=== PATIENT | male | born 1960 | race Caucasian/White ===

== ENCOUNTER 2016-09-17 21:14 | Inpatient (IN) | payer BC ==
[~2016-09-17] VITALS: Ht 190.5 cm; Wt 84.4 kg
[2016-09-17 21:15] VITALS: BP 138/72; PULSE 98; RESP 20; TEMP 102.2; O2SAT 97
--- NOTE | 2016-09-17 21:15 | NUR ---
Patient to ER bed 6 to gown for evaluation. Side rails up. Report given to JV BRITO.
--- NOTE | 2016-09-17 21:17 | NUR ---
Pt BIB ambulance from [facility] for evaluation of fever, per facility report, pt had elevated T at 102 . A&Ox4, currently tachycardic, temporal temp 102.2, colostomy at [facility], vertical incision at mid-abdomen covered with foam drsg r/t wound vac d/t abdominal surgery in June. Pt did not come with wound vac. Denies SOB or chestpain, denies N/V/D. Will continue to monitor
--- NOTE | 2016-09-17 21:20 | NUR ---
MD Arora at bedside examining pt
[2016-09-17] MEDS ORDERED: AMI200 PO (21:23)
[2016-09-17] MEDS ORDERED: MULT-300 PO (21:24)
[2016-09-17] MEDS ORDERED: ASCO500T20 PO (21:25)
[2016-09-17] MEDS ORDERED: ZIN220 PO (21:25)
[2016-09-17] MEDS ORDERED: LEVE500T53 PO (21:26)
[2016-09-17] MEDS ORDERED: CHOL100028 PO (21:26)
[2016-09-17] MEDS ORDERED: METO-290 PO (21:27)
[2016-09-17] MEDS ORDERED: PRO40 PO (21:28)
[2016-09-17] MEDS ORDERED: LOVI80 SQ (21:29)
[2016-09-17] MEDS ORDERED: ACET-2165 PO (21:33)
[2016-09-17] MEDS ORDERED: IPRA3AMP9 INH (21:34)
[2016-09-17] MEDS ORDERED: SSREG SUBCUT (21:49)
[2016-09-17 22:00] LABS: BASOPHILS # (AUTO) 0.1 K/uL (0.0-0.2); BASOPHILS % (AUTO) 0.5 % (0.0-2.0); EOSINOPHILS # (AUTO) 0.3 K/uL (0.0-0.4); EOSINOPHILS % (AUTO) 2.5 % (0.0-4.0); HEMATOCRIT 27.3 % (36-54); HEMOGLOBIN 8.9 g/dL (14.0-18.0); LYMPHOCYTES # (AUTO) 0.6 K/uL (1.0-5.5); LYMPHOCYTES % (AUTO) 5.2 % (20.5-51.5); MEAN CORPUSCULAR HEMOGLOBIN 28 pg (27-31); MEAN CORPUSCULAR HGB CONC 33 % (32-36); MEAN CORPUSCULAR VOLUME 87 fL (79.0-98.0); MONOCYTES # (AUTO) 1.3 K/uL (0.0-1.0); MONOCYTES % (AUTO) 10.9 % (1.7-9.3); NEUTROPHILS % (AUTO) 80.9 % (40.0-70.0); PLATELET COUNT (AUTO) 352 K/uL (130-430); RED BLOOD CELL COUNT(AUTO) 3.13 MIL/uL (4.2-6.2); RED CELL DISTRIBUTION WIDTH 16.6 % (9.0-15.0); WHITE BLOOD COUNT (AUTO) 12.3 K/uL (4.8-10.8)
[2016-09-17 22:04] LABS: CALCIUM 9.4 mg/dL (8.4-11.0); CREATININE 2.53 mg/dL (0.55-1.30); POTASSIUM 4.8 mmol/L (3.5-5.1)
[2016-09-17 22:09] LABS: ALBUMIN 2.4 g/dL (3.4-4.8); INR 1.1 (0.80-1.20); PROTHROMBIN TIME 11.4 SECS (9.5-12.5); TOTAL BILIRUBIN 0.4 mg/dL (0.0-1.0); TOTAL PROTEIN, SERUM 8.3 g/dL (6.4-8.3)
[2016-09-17] MEDS ORDERED: ACETAMINOPHEN 325 MG TABLET ONE (22:14)
[2016-09-17 22:16] LABS: BILIRUBIN,URINE NEGATIVE (NEGATIVE); BLOOD, URINE 1+ (NEGATIVE); CLARITY/URINE SL HAZY (CLEAR); COLOR,URINE YELLOW (YELLOW); GLUCOSE,URINE NEGATIVE (NEGATIVE); KETONES,URINE NEGATIVE (NEGATIVE); LEUKOCYTE ESTERASE ,URINE 1+ (NEGATIVE); NITRITE, URINE NEGATIVE (NEGATIVE); PH,URINE 5.5 (5.0-8.0); PROTEIN URINE 1+ (NEGATIVE); UROBILINOGEN,URINE 0.2 (0.2-1.0)
--- NOTE | 2016-09-17 22:20 | NUR ---
Pt met sepsis protocol, FLORECITA barrientos stated to give 100 mL/hr NS for now
[2016-09-17] MEDS ORDERED: NACL 0.9% 1,000 ML IV ONE (22:30)
[2016-09-17 22:40] LABS: BACTERIA,URINE FEW /HPF (None Seen); COARSE GRANULAR CASTS,URINE 0-10 /LPF (None Seen); MUCUS,URINE 1+ /LPF (None Seen); URINE AMORPHOUS URATE 1+ /HPF (None Seen); WBC,URINE 20-50 /HPF (0-3)
--- NOTE | 2016-09-17 22:52 | NUR ---
Medication reconciliation completed with information provided by facility report. Any prior medication reconciliation on file was reviewed and corrected.
[2016-09-17] MEDS ORDERED: LEVOFLOXACIN 500 MG/D5W 100 ML IV ONE (23:00)
--- NOTE | 2016-09-17 23:30 | NUR ---
Pt in bed appeared resting comfortably. Will continue to monitor
[2016-09-18] MEDS ORDERED: INSULIN REGULAR, HUMAN 100 UNITS/ML, 10 ML VIAL (novoLIN R) SUBCUT PRN ×2 (00:30→10:30)
--- NOTE | 2016-09-18 00:48 | NUR ---
Patient will be admitted to care of . Admitted to med-surg unit. Will go to room 134. Belongings list completed. Summary report printed. Report will be given at bedside Sheeba BRITO
--- NOTE | 2016-09-18 00:55 | NUR ---
ADMISSION NOTE Received patient from ER via serafin, received report from DARYL rankin. Patient admitted with diagnosis of UTI. Patient oriented to hospital routine, call light, toileting and safety-patient verbalized understanding.
[2016-09-18 00:58] VITALS: BP 105/61; PULSE 94; RESP 18; TEMP 97.7; O2SAT 97
--- NOTE | 2016-09-18 01:00 | NUR ---
initial note. pt. received aaox4, no s/s of sob or distress noted. no complaints of pain at this time. vss. iv fluids infusing at this time. no infiltration noted to iv site. abdominal wound noted. photographs taken and to be placed in chart. colostomy to LLQ noted, no output at this time. welsh catheter draining to gravity with clear yellow output noted. plan of care discussed with the pt., verbalizes understanding. will cont. to monitor for changes. safety and fall precautions in place. call light in reach.
--- NOTE | 2016-09-18 02:42 | NUR ---
rounds pt. resting in bed with eyes closed. chest rise and fall noted. no s/s of sob or distress. no facial grimacing for pain. will cont. to monitor. safety and fall precautions in place. call light in reach.
--- NOTE | 2016-09-18 06:31 | NUR ---
CLOSING NOTES PT. VOMITING AT THIS TIME. DR. LAZCANO PAGED. ORDERS RECEIVED FOR ZOFRAN PRN. WILL ADMINISTER DOSE SOON IT BECOMES AVAILABLE. ALL NECESSARY NEEDS WERE MET THROUGHOUT THE SHIFT. MORNING BLOOD SUGAR CHECK WAS WITHIN NORMAL LIMITS. NO INSULIN COVERAGE NEEDED PER SLIDING SCALE PROTOCOL. WILL ENDORSE CARE TO AM NURSE. CALL LIGHT IN REACH.
[2016-09-18 06:32] VITALS: BP 107/63; PULSE 100; RESP 17; TEMP 99.4; O2SAT 92
[2016-09-18] MEDS: ONDANSETRON HCL 4 MG/2 ML VIAL IVP PRN (06:43)
--- NOTE | 2016-09-18 08:00 | NUR ---
opening note RECEIVED REPORT AT 0745. PT WAS TRANSFERRED FROM A SNF DUE TO FEVER AND WAS DIAGNOSED WIT A UTI. PT IS SITTING UP IN BED AND STATED HE RECENTLY FELT NAUSEOUS BUT THAT THE RECENT DOSE OF ZOFRAN WAS HELPING. BANUELOS DUE TO BLADDER RETENTION, SECURE AND IN PLACE. VS STABLE AND PT IS NOT COMPLAINING OF PAIN OR DISCOMFORT.
--- NOTE | 2016-09-18 10:00 | NUR ---
ROUNDS PT IS SITTING UP IN BED, WATCHING TV, AND STATES HE IS COMFORTABLE
[2016-09-18] MEDS ORDERED: ACETAMINOPHEN 325 MG TABLET PO PRN (10:30)
[2016-09-18] MEDS ORDERED: cefTRIAXone 1 GM IVPB PREMIX 50 ML IV SCH (10:30)
[2016-09-18] MEDS ORDERED: IPRATROPIUM/ALBUTEROL SULFATE 3 ML AMPUL.NEB INH PRN ×2 (10:30→10:45)
[2016-09-18] MEDS ORDERED: DEXTROSE 50% JECT 50 ML DISP.SYRIN IVP PRN (10:30)
[2016-09-18] MEDS ORDERED: AMIODARONE HCL 200 MG TABLET PO ONE (10:45)
[2016-09-18] MEDS ORDERED: ASCORBIC ACID 500 MG TABLET PO ONE (10:45)
[2016-09-18] MEDS ORDERED: LEVOFLOXACIN 250 MG/D5W 50 ML IV SCH (11:00)
[2016-09-18] MEDS ORDERED: CHOLECALCIFEROL (VITAMIN D3) 2,000 UNIT TABLET PO ONE (11:15)
[2016-09-18] MEDS ORDERED: PANTOPRAZOLE SODIUM 40 MG TAB PO ONE (11:15)
[2016-09-18] MEDS ORDERED: DOCUSATE SODIUM 250 MG CAPSULE PO ONE (11:30)
[2016-09-18] MEDS ORDERED: ENOXAPARIN SODIUM 80 MG/0.8 ML SYRINGE SQ ONE (11:30)
[2016-09-18] MEDS ORDERED: levETIRAcetam 500 MG TABLET PO ONE (11:45)
[2016-09-18] MEDS ORDERED: MULTIVITS,CA,MINERALS/IRON/FA 1 TABLET PO ONE (11:45)
--- NOTE | 2016-09-18 11:45 | NUR ---
CONSULT: DR VALENZUELA CONSULT WAS CALLED, AJAY RICHARDSON SEPSIS
[2016-09-18 12:16] VITALS: BP 92/56; PULSE 86; RESP 16; TEMP 99.7; O2SAT 98
--- NOTE | 2016-09-18 12:30 | NUR ---
ROUNDS PT IS SITTING UP IN BED, EATING LUNCH. HE STATES HE IS DRY AND COMFORTABLE
[2016-09-18] MEDS: IPRATROPIUM/ALBUTEROL SULFATE 3 ML AMPUL.NEB INH SCH ×2 (13:00→19:00)
[2016-09-18] MEDS: METOCLOPRAMIDE HCL 10 MG TABLET PO SCH ×2 (14:33→21:06)
--- NOTE | 2016-09-18 15:00 | NUR ---
VIV PT IS IN BED AND APPEARS TO BE SLEEPING. I SET HIS GLASSES ON THE NIGHT STAND AND TURNED HIS LIGHTS OFF.
[2016-09-18 16:18] VITALS: BP 98/56; PULSE 90; RESP 16; TEMP 98.8; O2SAT 94
--- NOTE | 2016-09-18 17:00 | NUR ---
ROUNDS PT APPEARS TO BE SLEEPING, BUT HE WOKE EASILY AND SAID HE WAS NOT EXPERIENCING ANY PAIN. I ASSISTED HIM IN REPOSITIONING FOR COMFORT AND ORGANIZING HIS SURROUNDINGS.
[2016-09-18 17:58] VITALS: BP 98/56; PULSE 94
--- NOTE | 2016-09-18 19:15 | NUR ---
CLOSING NOTE PT IS AWAKE AND ORIENTED, STABLE AND COOPERATIVE WITH NO COMPLAINTS OF DISCOMFORT. REPORT GIVEN AT BEDSIDE TO ALEKSEY.
--- NOTE | 2016-09-18 19:53 | NUR ---
OPENING NOTE Pt. and bedside report received from day shift nurse. Pt. is AAO x 4 and resting in bed. IV site to right f/a 20g is dry and intact with no s/s of infiltration. Colostomy noted to left lower abdomen. Dressing to mid abdomen is CDI with no active bleeding noted. Plan of care discussed; pt. verbalized understanding. Safety and fall precautions in place. Encouraged pt. to use call light for needs. Bed alarm on. Will continue to monitor.
[2016-09-18 20:00] VITALS: BP 108/61; PULSE 95; RESP 18; TEMP 98; O2SAT 96
[2016-09-18] MEDS: DOCUSATE SODIUM 250 MG CAPSULE PO SCH (21:05)
[2016-09-18] MEDS: MEROPENEM 1 GM in NS 100 ML IV SCH (21:05)
[2016-09-18] MEDS: ENOXAPARIN SODIUM 80 MG/0.8 ML SYRINGE SQ SCH (21:05)
[2016-09-18] MEDS: levETIRAcetam 500 MG TABLET PO SCH (21:08)
--- NOTE | 2016-09-18 21:30 | NUR ---
DUE MEDS Due meds were administered as ordered; educated pt. regarding medication and s/e. Pt. verbalized understanding with no concerns at this time. Accucheck done; pt.'s blood sugar: 114; no insulin was given per sliding scale order. Pt. denies any pain or discomfort at this time. Safety and fall precautions in place. Call light to left hand. Encouraged pt. to use call light for needs. Will continue to monitor.
--- NOTE | 2016-09-18 22:00 | NUR ---
REFUSED SCDS Educated pt. regarding SCD order. Pt. refused and stated "those will bug me all night. I've had them before." Pt. also has Lovenox order for DVT prophylaxis. Will continue to monitor.
--- NOTE | 2016-09-19 00:39 | NUR ---
RESTING Pt. is resting quietly in bed with no s/s of acute distress. Respirations are even and unlabored with visible chest rise and fall. Safety and fall precautions in place. Call light to right left hand. Will continue to monitor.
[2016-09-19 00:58] VITALS: BP 109/58; PULSE 97; RESP 17; TEMP 97.8; O2SAT 98
[2016-09-19] MEDS: IPRATROPIUM/ALBUTEROL SULFATE 3 ML AMPUL.NEB INH SCH ×4 (01:00→19:00)
--- NOTE | 2016-09-19 01:25 | NUR ---
ROUNDS Pt. is resting quietly in bed with no s/s of acute distress. Safety and fall precautions in place. Will continue to monitor.
--- NOTE | 2016-09-19 03:47 | NUR ---
RESTING Pt. is resting quietly in bed with eyes closed. Respirations are even and unlabored with visible chest rise and fall. No s/s of acute distress. Safety and fall precautions in place. Call light to left hand. Bed alarm on. Will continue to monitor.
[2016-09-19 04:00] VITALS: BP 108/63; PULSE 78; RESP 18; TEMP 98.2; O2SAT 98
--- NOTE | 2016-09-19 05:41 | NUR ---
POSITIVE BLOOD CULTURE RESULTS Gayle from lab called to report pt.'s positive blood culture results from 09/17/16. Gram negative rods from aerobic bottle. Paging Dr. Don to report. Will wait for MD to call back.
--- NOTE | 2016-09-19 05:57 | NUR ---
REPORTED POSITIVE BLOOD CULTURES TO DR. JACKSON Reported pt.'s positive blood culture results to Dr. Jackson. Dr. Jackson asked about pt.'s current IV antibiotic which is Merrem IVPB BID. No new orders were given. Charge nurse, DARYL Christensen also made aware.
[2016-09-19] MEDS: METOCLOPRAMIDE HCL 10 MG TABLET PO SCH ×3 (06:06→21:06)
--- NOTE | 2016-09-19 06:45 | NUR ---
DUE MED/ACCUCHECK/CLOSING NOTES Due med administered as ordered. Pt. tolerated well. Accucheck done, blood sugar within normal limits. All needs met throughout shift. Safety, seizure, and fall precautions in place. No s/s of seizure activity throughout shift. Pt. denies any pain at this time. Safety and fall precautions in place. Encouraged pt. to use call light for needs. Will endorse care to oncoming day shift nurse.
[2016-09-19 06:47] LABS: BASOPHILS % (AUTO) 0.4 % (0.0-2.0); EOSINOPHILS % (AUTO) 8.4 % (0.0-4.0); HEMATOCRIT 28.1 % (36-54); HEMOGLOBIN 9.1 g/dL (14.0-18.0); LYMPHOCYTES # (AUTO) 0.6 K/uL (1.0-5.5); LYMPHOCYTES % (AUTO) 5.2 % (20.5-51.5); MEAN CORPUSCULAR HEMOGLOBIN 28 pg (27-31); MEAN CORPUSCULAR HGB CONC 32 % (32-36); MEAN CORPUSCULAR VOLUME 87 fL (79.0-98.0); MONOCYTES # (AUTO) 1.7 K/uL (0.0-1.0); MONOCYTES % (AUTO) 14.9 % (1.7-9.3); PLATELET COUNT (AUTO) 357 K/uL (130-430); RED BLOOD CELL COUNT(AUTO) 3.23 MIL/uL (4.2-6.2); RED CELL DISTRIBUTION WIDTH 16.6 % (9.0-15.0); WHITE BLOOD COUNT (AUTO) 11.3 K/uL (4.8-10.8)
[2016-09-19 07:06] LABS: ALBUMIN 2.1 g/dL (3.4-4.8); CALCIUM 9.1 mg/dL (8.4-11.0); CREATININE 2.56 mg/dL (0.55-1.30); PHOSPHORUS 4.8 mg/dL (2.7-4.5); POTASSIUM 4.6 mmol/L (3.5-5.1); THYROID STIMULATING HORMONE 2.35 uIu/mL (0.34-4.82); TOTAL BILIRUBIN 0.4 mg/dL (0.0-1.0)
[2016-09-19 07:56] LABS: IRON (SERUM) 20 mcg/dL (59-158)
[2016-09-19 07:57] LABS: TOTAL IRON BIND. CAPACITY 128 ug/dL (250-450)
--- NOTE | 2016-09-19 08:11 | NUR ---
0800/OPENING NOTE RECEIVED REPORT FROM SUPERVISOR DOCK NURSE. PATIENT RESTING COMFORTABLY AT THIS TIME. NO COMPLAINTS OF PAIN, AND NO NOTABLE SIGNS OF DISTRESS AT THIS TIME. PATIENT HAS COLOSTOMY BAG TO [facility], FILLED WITH GAS, WOULD LIKE MEDICATION TO HELP WITH CONSTIPATION. PER PATIENT LAST BM WAS MONDAY. PATIENT IV SALINE LOCKED PER MD ORDERS, PATIENT REFUSED SCDS, AND BANUELOS IS DRAINING TO GRAVITY. PATIENT BED IN LOWEST POSITION, CALL LIGHT WITHIN REACH, AND SIDE RAILS ARE UP FOR SAFETY. PATIENT HAS SEIZURE PADS APPLIED TO SIDE RAILS. WILL CONTINUE TO MONITOR PATIENT FOR CHANGES IN STATUS.
[2016-09-19 08:14] VITALS: BP 111/69; PULSE 88; RESP 15; TEMP 98.4; O2SAT 97
--- NOTE | 2016-09-19 10:04 | NUR ---
Nutrition Update Clifford Scale 16 noted. Pt admitted for UTI. Diet: [facility] BMI: 24.1 kg/m2 RD to follow per nutrition care standards.
[2016-09-19 10:11] LABS: NEUTROPHILS % (AUTO) 71.1 % (40.0-70.0)
[2016-09-19] MEDS: ASCORBIC ACID 500 MG TABLET PO SCH (10:11)
[2016-09-19] MEDS: levETIRAcetam 500 MG TABLET PO SCH ×2 (10:11→21:06)
[2016-09-19] MEDS: DOCUSATE SODIUM 250 MG CAPSULE PO SCH ×2 (10:11→21:06)
[2016-09-19] MEDS: AMIODARONE HCL 200 MG TABLET PO SCH (10:13)
[2016-09-19] MEDS: MULTIVITS,CA,MINERALS/IRON/FA 1 TABLET PO SCH (10:13)
[2016-09-19] MEDS: PANTOPRAZOLE SODIUM 40 MG TAB PO SCH (10:13)
[2016-09-19] MEDS: CHOLECALCIFEROL (VITAMIN D3) 2,000 UNIT TABLET PO SCH (10:14)
[2016-09-19] MEDS: ENOXAPARIN SODIUM 80 MG/0.8 ML SYRINGE SQ SCH ×2 (10:15→21:06)
--- NOTE | 2016-09-19 10:18 | NUR ---
1000 NOTE PATIENT RESTING COMFORTABLY AT THIS TIME. NO COMPLAINTS OF PAIN, AND NO NOTABLE SIGNS OF DISTRESS AT THIS TIME. PATIENT HAS COLOSTOMY BAG TO LLQ, FILLED WITH GAS, AND SMALL AMOUNT OF STOOL. PATIENT IV SALINE LOCKED PER MD ORDERS AND BNAUELOS IS DRAINING TO GRAVITY. PATIENT BED IN LOWEST POSITION, CALL LIGHT WITHIN REACH, AND SIDE RAILS ARE UP FOR SAFETY. PATIENT HAS SEIZURE PADS APPLIED TO SIDE RAILS. WILL CONTINUE TO MONITOR PATIENT FOR CHANGES IN STATUS.
[2016-09-19] MEDS: MEROPENEM 1 GM in NS 100 ML IV SCH ×2 (11:29→21:06)
[2016-09-19 11:30] VITALS: BP 101/66; PULSE 90; RESP 18; TEMP 98.1; O2SAT 97
--- NOTE | 2016-09-19 12:32 | NUR ---
1200 NOTE PATIENT RESTING COMFORTABLY AT THIS TIME. NO COMPLAINTS OF PAIN, AND NO NOTABLE SIGNS OF DISTRESS AT THIS TIME. PATIENT HAS COLOSTOMY BAG TO LLQ, FILLED WITH GAS, AND IS ABLE TO PASS STOOL. STOOL IS MORE DIFFICULT TO PASS. PATIENT IV SALINE LOCKED PER MD ORDERS AND BANUELOS IS DRAINING TO GRAVITY. PATIENT BED IN LOWEST POSITION, CALL LIGHT WITHIN REACH, AND SIDE RAILS ARE UP FOR SAFETY. PATIENT HAS SEIZURE PADS APPLIED TO SIDE RAILS. WILL CONTINUE TO MONITOR PATIENT FOR CHANGES IN STATUS.
--- NOTE | 2016-09-19 14:57 | NUR ---
1400 NOTE PATIENT RESTING COMFORTABLY AT THIS TIME. NO COMPLAINTS OF PAIN, AND NO NOTABLE SIGNS OF DISTRESS AT THIS TIME. PATIENT HAS COLOSTOMY BAG TO [facility], FILLED WITH GAS, AND IS ABLE TO PASS STOOL, GIVEN STOOL SOFTENER THIS MORNING AND IT IS SOFTENING STOOL. PATIENT IV SALINE LOCKED PER MD ORDERS AND BANUELOS IS DRAINING TO GRAVITY. PATIENT WILL NEED DRESSING CHANGE THIS AFTERNOON ON ABDOMINAL WOUND. PATIENT BED IN LOWEST POSITION, CALL LIGHT WITHIN REACH, AND SIDE RAILS ARE UP FOR SAFETY. PATIENT HAS SEIZURE PADS APPLIED TO SIDE RAILS. WILL CONTINUE TO MONITOR PATIENT FOR CHANGES IN STATUS.
[2016-09-19 16:20] VITALS: BP 125/64; PULSE 63; RESP 16; TEMP 97.6; O2SAT 94
--- NOTE | 2016-09-19 18:55 | NUR ---
1600 NOTE PATIENT RESTING COMFORTABLY AT THIS TIME. NO COMPLAINTS OF PAIN, AND NO NOTABLE SIGNS OF DISTRESS AT THIS TIME. PATIENT HAS COLOSTOMY BAG TO [facility], FILLED WITH GAS, AND IS ABLE TO PASS STOOL, GIVEN STOOL SOFTENER THIS MORNING AND IT IS SOFTENING STOOL. PATIENTS APPLIANCE CHANGED WITH WOUND DRESSING CHANGED. PATIENTS ABDOMINAL WOUND IS 13.2CM LENGTH; 2.2CM DEPTH; 4CM WIDTH; PERIWOUND IS PINK. WOUND IS 95% PINK; 55 YELLOW. CLEANED WITH NORMAL SALINE, COVERED WITH HYDROGEL AND FOAM OP SITE APPLIED. PATIENT IV SALINE LOCKED PER MD ORDERS AND BANUELOS IS DRAINING TO GRAVITY. PATIENT BED IN LOWEST POSITION, CALL LIGHT WITHIN REACH, AND SIDE RAILS ARE UP FOR SAFETY. PATIENT HAS SEIZURE PADS APPLIED TO SIDE RAILS. WILL CONTINUE TO MONITOR PATIENT FOR CHANGES IN STATUS.
--- NOTE | 2016-09-19 18:59 | NUR ---
1800 NOTE WAITING TO GIVE REPORT TO TRENCH DIGGER HELPER NURSE. PATIENT RESTING COMFORTABLY AT THIS TIME. NO COMPLAINTS OF PAIN, AND NO NOTABLE SIGNS OF DISTRESS AT THIS TIME. PATIENT HAS COLOSTOMY BAG TO [facility], FILLED WITH GAS, AND IS ABLE TO PASS STOOL, GIVEN STOOL SOFTENER THIS MORNING AND IT IS SOFTENING STOOL. PATIENTS APPLIANCE CHANGED WITH WOUND DRESSING CHANGED. PATIENT IV SALINE LOCKED PER MD ORDERS AND BANUELOS IS DRAINING TO GRAVITY. PATIENT BED IN LOWEST POSITION, CALL LIGHT WITHIN REACH, AND SIDE RAILS ARE UP FOR SAFETY. PATIENT HAS SEIZURE PADS APPLIED TO SIDE RAILS. WILL CONTINUE TO MONITOR PATIENT FOR CHANGES IN STATUS.
--- NOTE | 2016-09-19 19:44 | NUR ---
INITIAL NOTE Patient resting on the bed. No acute distress. Respiration even and unlabored. Denied of pain. AO x4. Skin warm and dy to touch. SL intact to RFA, no redness, no swelling. Colostomy bag intact to LLQ with brown stool. Mid abdomen wound intact with dry dressing. F/C intact, drain gravity with yellow urine. Discussed the safety issue, use call light when need help, verbally understanding. On contact isolation for MRSA of nares. Safety measure maintained. Call light within reached. Bed in low position, side rails up, bed alarm on. Will continue to monitor.
[2016-09-19 19:50] VITALS: BP 116/76; PULSE 96; RESP 18; TEMP 98.4; O2SAT 97
--- NOTE | 2016-09-19 21:41 | NUR ---
COLOSTOMY BAG CHANGED Leakage noted on the right side of the colostomy bag. Mid abdomen wound and colostomy bag changed. Procedure tolerated well. No acute distress. Safety measure maintained. Padded side rails up, bed alarm on, bed in low position. Call light within reached. Will continue to monitor.
--- NOTE | 2016-09-19 23:23 | NUR ---
ROUND Patient resting on the bed with eyes closed. Respiration even and unlabored. No acute distress. Safety measure maintained. Bed in low position, padded side rails up, bed alarm on. Call light within reached. Will continue to monitor.
[2016-09-20] VITALS: BP 106/76; PULSE 68; RESP 17; TEMP 97.8; O2SAT 99
[2016-09-20] MEDS: IPRATROPIUM/ALBUTEROL SULFATE 3 ML AMPUL.NEB INH SCH ×3 (01:00→13:00)
--- NOTE | 2016-09-20 01:10 | NUR ---
ROUND Patient sleeping comfortable. Respiration even and unlabored. No acute distress. Safety measure maintained. Bed in low position, padded side rails up, bed alarm on. Call light within reached. Continue to monitor.
[2016-09-20 04:07] VITALS: BP 108/63; PULSE 66; RESP 18; TEMP 98; O2SAT 98
--- NOTE | 2016-09-20 05:00 | NUR ---
ROUND Patient sleeping comfortable. No acute distress. Respiration even and unlabored. Safety measure maintained. Call light within reached. Bed in low position, padded side rails up, bed alarm on. Continue to monitor.
[2016-09-20] MEDS: METOCLOPRAMIDE HCL 10 MG TABLET PO SCH ×3 (06:39→22:05)
--- NOTE | 2016-09-20 06:46 | NUR ---
CLOSING NOTE Patient resting on the bed. No acute distress. Respiration even and unlabored. Skin warm and dy to touch. SL intact to RFA, no redness, no swelling. Colostomy bag intact to LLQ with brown stool. Mid abdomen wound intact with dry dressing. F/C intact, drain gravity with yellow urine. Colostomy care done. All needs met. Hourly rounding during shift. No seizure activity noted during shift. On contact isolation for MRSA of nares. Safety measure maintained. Call light within reached. Bed in low position, side rails up, bed alarm on. Will endorse to morning shift nurse.
[2016-09-20 07:05] LABS: BASOPHILS % (AUTO) 0.4 % (0.0-2.0); EOSINOPHILS # (AUTO) 0.9 K/uL (0.0-0.4); EOSINOPHILS % (AUTO) 12.4 % (0.0-4.0); HEMATOCRIT 28.1 % (36-54); LYMPHOCYTES # (AUTO) 0.5 K/uL (1.0-5.5); LYMPHOCYTES % (AUTO) 6.2 % (20.5-51.5); MEAN CORPUSCULAR HEMOGLOBIN 28 pg (27-31); MEAN CORPUSCULAR HGB CONC 32 % (32-36); MEAN CORPUSCULAR VOLUME 88 fL (79.0-98.0); MONOCYTES # (AUTO) 1.1 K/uL (0.0-1.0); MONOCYTES % (AUTO) 14.4 % (1.7-9.3); NEUTROPHILS % (AUTO) 66.6 % (40.0-70.0); PLATELET COUNT (AUTO) 346 K/uL (130-430); RED CELL DISTRIBUTION WIDTH 16.2 % (9.0-15.0)
[2016-09-20 07:08] LABS: WHITE BLOOD COUNT (AUTO) 7.5 K/uL (4.8-10.8)
[2016-09-20 07:29] LABS: CALCIUM 9.1 mg/dL (8.4-11.0); CREATININE 2.46 mg/dL (0.55-1.30)
[2016-09-20 08:00] VITALS: BP 110/71; PULSE 95; RESP 18; TEMP 98.2; O2SAT 98
--- NOTE | 2016-09-20 08:00 | NUR ---
OPENING NOTE PATIENT IS SLEEPING SOUNDLY, LUNGS CLEAR. OSTOMY BAG IS ALMOST FULL AND PATIENT IS IN NO APPARENT DISTRESS. AWOKEN FOR VITALS, PATIENT DENIES ANY PAIN. ALERT AND ORIENTED, LUNGS CLEAR.
[2016-09-20] MEDS: DOCUSATE SODIUM 250 MG CAPSULE PO SCH ×2 (09:00→22:05)
[2016-09-20] MEDS: MEROPENEM 1 GM in NS 100 ML IV SCH ×2 (09:00→22:05)
--- NOTE | 2016-09-20 09:18 | NUR ---
COLOSTOMY BAGH CHANGED BY DARYL DUNBAR
[2016-09-20] MEDS: ENOXAPARIN SODIUM 80 MG/0.8 ML SYRINGE SQ SCH ×2 (09:36→22:05)
[2016-09-20] MEDS: MULTIVITS,CA,MINERALS/IRON/FA 1 TABLET PO SCH (09:36)
[2016-09-20] MEDS: levETIRAcetam 500 MG TABLET PO SCH ×2 (09:36→22:05)
[2016-09-20] MEDS: PANTOPRAZOLE SODIUM 40 MG TAB PO SCH (09:36)
[2016-09-20] MEDS: ASCORBIC ACID 500 MG TABLET PO SCH (09:36)
[2016-09-20] MEDS: CHOLECALCIFEROL (VITAMIN D3) 2,000 UNIT TABLET PO SCH (09:36)
[2016-09-20] MEDS: AMIODARONE HCL 200 MG TABLET PO SCH (09:37)
--- NOTE | 2016-09-20 10:05 | NUR ---
PATIENT MEDICATED WITH MERREM PER ORDERS. MEDICATION DID NOT ARRIVE ON UNIT UNTIL 1000.
--- NOTE | 2016-09-20 12:08 | NUR ---
BG WNL AND NO INSULIN COVERAGE NEEDED. PATIENT MAINTAINS THAT HE HAS NEVER BEEN A DIABETIC AND IS REQUESTING TO STOP HAVING HIS BLOOD SUGAR CHECKED. PER DO HELLER PT WILL NEED OCCUPATIONAL THERAPY FOR HIS RIGHT "CLAW" HAND WHICH APPARENTLY PRESENTED AFTER PATIENT WOKE FROM BEING IN MEDICALLY INDUCED COMA FOR RECOVERY FROM BOWEL RESECTION.
[2016-09-20 12:16] VITALS: BP 98/70; PULSE 91; RESP 17; TEMP 98.2; O2SAT 90
[2016-09-20 12:25] VITALS: Ht 190.5 cm; Wt 84.4 kg
--- NOTE | 2016-09-20 14:50 | NUR ---
PT COLOSTOMY BAG IS AGAIN FULL AND FALLING OFF. BAG CHANGED BY DARYL DUNBAR. DRESSING CHANGED BY ME AND PT CLEANED OF INCONTINENCE. BANUELOS CATHETER IS LEAKING, BALLOON REINFLATED.
[2016-09-20 16:54] VITALS: BP 96/57; PULSE 89; RESP 17; TEMP 98; O2SAT 90
--- NOTE | 2016-09-20 17:24 | NUR ---
accucheck and insulin protocol dc'd by dr zaragoza
--- NOTE | 2016-09-20 19:33 | NUR ---
INITIAL NOTE Patient resting on the bed. No acute distress. Respiration even and unlabored. Denied of pain. AO x4. Skin warm and dy to touch. SL intact to RFA, no redness, no swelling. Colostomy bag intact to LLQ with brown stool. Mid abdomen wound intact and clean dressing. F/C intact, drain gravity with yellow urine. On contact isolation for MRSA of nares. Discussed the safety issue, use call light when need help, verbally understanding. Safety measure maintained. Call light within reached. Bed in low position, side rails up, bed alarm on. Will continue to monitor.
[2016-09-20 19:42] VITALS: BP 112/79; PULSE 97; RESP 18; TEMP 99.6; O2SAT 96
--- NOTE | 2016-09-20 21:15 | NUR ---
ROUND Patient resting on the bed comfortable. Respiration even and unlabored. No acute distress. Safety measure maintained. Bed in low position, padded side rails up, bed alarm on. Call light within reached. Will continue to monitor.
--- NOTE | 2016-09-20 23:25 | NUR ---
ROUND Patient resting on the bed with eyes closed. Respiration even and unlabored. No acute distress. F/C intact, grain gravity. Safety measure maintained. Bed in low position, padded side rails up, bed alarm on. Call light within reached. Continue to monitor.
[2016-09-21 00:12] LABS: FOLATE (FOLIC ACID) 10.8 ng/mL (>3.0)
[2016-09-21 00:15] VITALS: BP 105/60; PULSE 90; RESP 18; TEMP 97.8; O2SAT 97
[2016-09-21 04:00] VITALS: BP 118/74; PULSE 88; RESP 18; TEMP 98.8; O2SAT 97
--- NOTE | 2016-09-21 05:05 | NUR ---
ROUND Patient sleeping comfortable. Respiration even and unlabored. No acute distress. Safety measure maintained. Call light within reached. Bed in low position, padded side rails up, bed alarm on. Continue to monitor.
[2016-09-21] MEDS: METOCLOPRAMIDE HCL 10 MG TABLET PO SCH ×3 (06:31→21:10)
--- NOTE | 2016-09-21 06:49 | NUR ---
CLOSING NOTE Patient resting on the bed comfortable. No acute distress. Respiration even and unlabored. Denied of pain the whole shift. SL intact to RFA, no redness, no swelling. Colostomy bag intact to LLQ with brown stool. Mid abdomen wound intact and clean dressing. F/C intact, drain gravity with yellow urine. 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 All needs met. Hourly rounding during shift. Safety measure maintained. Call light within reached. Bed in low position, padded side rails up, bed alarm on. Will endorse to morning shift nurse.
[2016-09-21] MEDS: IPRATROPIUM/ALBUTEROL SULFATE 3 ML AMPUL.NEB INH SCH ×2 (07:25→13:24)
--- NOTE | 2016-09-21 07:50 | NUR ---
0800/OPENING NOTE RECEIVED REPORT FROM TRIAL PARALEGAL NURSE. PATIENT RESTING COMFORTABLY AT THIS TIME. NO COMPLAINTS OF PAIN, AND NO NOTABLE SIGNS OF DISTRESS AT THIS TIME. PATIENT HAS COLOSTOMY BAG TO LLQ, PATIENTS COLOSTOMY LEAKING, AND UNABLE TO STAY ADHERED. ABDOMINAL WOUND PRESENT IN CLOSE PROXIMITY. WOULD LIKE NILDA SPOOL CARRIER TO ASSIST. PATIENT IV SALINE LOCKED PER MD ORDERS, PATIENT REFUSED SCDS, AND BANUELOS IS DRAINING TO GRAVITY. PATIENT BED IN LOWEST POSITION, CALL LIGHT WITHIN REACH, AND SIDE RAILS ARE UP FOR SAFETY. PATIENT REFUSES SEIZURE PADS TO SIDE RAILS, DENIES HISTORY OF SEIZURES. WILL CONTINUE TO MONITOR PATIENT FOR CHANGES IN STATUS.
--- NOTE | 2016-09-21 08:58 | NUR ---
DISCHARGE PLANNING DC order back to SNF. Faxed SNF referral to [phone]. Will follow up on ISO bed availability. Addendum: 09/21/16 at 0959 by Mariluz Boyd DP Spoke with Loida in admitting at [facility], pending insurance auth. Bed assignment will be given upon insurance auth. DCP will follow up. Called insurance MISTI Camacho at [employer] [phone] requesting contracted list of ambulance vendors and transport auth. Placed transportation packet in nurses station. Addendum: 09/21/16 at 1038 by Mariluz Boyd DP Received call from MISTI Camacho at [employer] contracted ambulance [facility] [phone], auth is not required. Addendum: 09/21/16 at 1557 by Karen Coleman RN >> S/w misti Camacho at [facility] regarding authorization for [employer]. Per Janice, she is in contact with Loida at [employer] for skill needs info. The case is being reviewed. The authorization may be approved by today other ramirez will be tomorrow per Janice. Kary made aware, cm to f/u.
[2016-09-21] MEDS: PANTOPRAZOLE SODIUM 40 MG TAB PO SCH (09:58)
[2016-09-21] MEDS: DOCUSATE SODIUM 250 MG CAPSULE PO SCH ×2 (09:58→21:10)
[2016-09-21] MEDS: AMIODARONE HCL 200 MG TABLET PO SCH (09:58)
[2016-09-21] MEDS: CHOLECALCIFEROL (VITAMIN D3) 2,000 UNIT TABLET PO SCH (09:59)
[2016-09-21] MEDS: levETIRAcetam 500 MG TABLET PO SCH ×2 (09:59→21:10)
[2016-09-21] MEDS: ASCORBIC ACID 500 MG TABLET PO SCH (09:59)
[2016-09-21] MEDS: MULTIVITS,CA,MINERALS/IRON/FA 1 TABLET PO SCH (09:59)
[2016-09-21] MEDS: MEROPENEM 1 GM in NS 100 ML IV SCH ×2 (10:00→21:02)
[2016-09-21] MEDS: ENOXAPARIN SODIUM 80 MG/0.8 ML SYRINGE SQ SCH ×2 (10:00→21:11)
--- NOTE | 2016-09-21 10:40 | NUR ---
1000 NOTE PATIENT RESTING COMFORTABLY AT THIS TIME. NO COMPLAINTS OF PAIN, AND NO NOTABLE SIGNS OF DISTRESS AT THIS TIME. PATIENT HAS COLOSTOMY BAG TO Q, PATIENTS COLOSTOMY LEAKING, AND UNABLE TO STAY ADHERED. APPLIANCE CHANGED , SITE CLEANED WITH NORMAL SALINE AND GAUZE. ABDOMINAL WOUND PRESENT IN CLOSE PROXIMITY. WOULD LIKE NILDA MATCHING MACHINE OPERATOR TO ASSIST. PATIENT IV SALINE LOCKED PER MD ORDERS, PATIENT REFUSED SCDS, AND BANUELOS IS DRAINING TO GRAVITY. PATIENT BED IN LOWEST POSITION, CALL LIGHT WITHIN REACH, AND SIDE RAILS ARE UP FOR SAFETY. PATIENT REFUSES SEIZURE PADS TO SIDE RAILS, DENIES HISTORY OF SEIZURES. WILL CONTINUE TO MONITOR PATIENT FOR CHANGES IN STATUS.
[2016-09-21 12:02] VITALS: BP 111/88; PULSE 85; RESP 20; TEMP 97.9; O2SAT 96
--- NOTE | 2016-09-21 12:30 | NUR ---
1200 NOTE PATIENT RESTING COMFORTABLY AT THIS TIME. NO COMPLAINTS OF PAIN, AND NO NOTABLE SIGNS OF DISTRESS AT THIS TIME. PATIENT IV SALINE LOCKED PER MD ORDERS, PATIENT REFUSED SCDS, AND BANUELOS IS DRAINING TO GRAVITY. PATIENT BED IN LOWEST POSITION, CALL LIGHT WITHIN REACH, AND SIDE RAILS ARE UP FOR SAFETY. PATIENT REFUSES SEIZURE PADS TO SIDE RAILS, DENIES HISTORY OF SEIZURES. WILL CONTINUE TO MONITOR PATIENT FOR CHANGES IN STATUS. SPOKE WITH DR. JACKSON REGARDING DISCHARGE. OKAY TO DISCHARGE CONTINUE 7 DAYS OF MERREM. Addendum: 09/21/16 at 1234 by Marissa Mendez RN LOGAN LAZCANO REGARDING DISCHARGE ORDER.
--- NOTE | 2016-09-21 12:44 | NUR ---
PAGED DR LAZCANO FOR ORDERS. SPOKE WITH SYDNEY
--- NOTE | 2016-09-21 14:00 | NUR ---
WOUND EVALUATION: Wound Consult received from Dr. Kirk. Thank you, Dr. Kirk, for the consult. Patient received in a Alex Bed with an Isoflex MIRA mattress, awake, alert, and oriented. Patient is unable to turn independently. Clifford Score is a 16. Past Medical History: Colon Cancer, status post Resection more than a year ago, Bowel Obstruction (needed surgery, colostomy, lysis of adhesions and apparently it was done at [facility], then the patient ended in coma and he had a wound dehiscence and he was on wound VAC). Recent Labs: WBC 7.5, RBC 3.20, hemoglobin 9.0, hematocrit 28.1, BUN 43, creatinine 2.46, GFR 29, POC glucose 104. Intrinsic factors that delay wound healing: Colon Cancer, dehisced wound. Extrinsic factors that delay wound healing: Decreased mobility. Microbiology: MRSA screen positive. Blood culture and urine culture positive for pseudomonas aeruginosa. Wound Assessment: 1) Coccygeal Area: Unstageable pressure ulcer, present on admission. Wound bed is 70% yellow tissue, 30% red tissue. No odor, scant yellow Purulent drainage. Cele-wound intact. Measures 2.0 cm x 2.0 cm. Patient said this wound started in around May or June of this year after his surgery and subsequent comatose (when he awoke, the wound was present). Recommend: Cleanse wound with normal saline. Place moisture barrier cream onto cele-wound. Put Venelex ointment onto wound bed. Pack wound with 1/4 inch iodoform. Cover with foam dressing. Perform wound care daily, and as needed for dressing soiling or dislodgement. 2) Mid Central Abdomen: Acute on chronic Surgical wound, present on admission. Wound bed is 85% red tissue, 15% yellow tissue. No odor, no drainage. Measures 13.7 cm x 4.1 cm x 2.0 cm. Recommend: Cleanse wound with normal saline. Place moisture barrier cream onto cele-wound. Put Venelex ointment onto wound bed. Pack wound with TenderWet dressings (if they fit without touching periwound, then pack with 1/2 inch iodoform. Cover with foam dressing. Perform wound care daily, and as needed for dressing soiling or dislodgement. 3) Left Abdominal Area: Colostomy, present on admission. Stoma is 100% pink tissue. Measures 1.9 cm x 2.2 cm. Recommend: Cleanse area with mild soap and water. Pat dry. Put SurePrep on cele-stoma and surrounding tissue. Apply Ha's ring around stoma. Cut and shape colostomy pouch (one or two piece pouch) and place left lateral of wound. Apply wound dressing to surgical wound as ordered, and overlap pouch if necessary. Also recommend: Encourage and assist patient with repositioning side to side only every 2 hours with pillow support, and off-load pressure areas with pillows for pressure re-distribution. Offload, elevate and float bilateral heels with pillows. Perform skin care and monitor skin integrity Q shift. Use moisture barrier cream on buttocks and other moisture susceptible areas QID and as needed for soiling. Place patient on a low air-loss mattress.
--- NOTE | 2016-09-21 14:24 | NUR ---
CONSULT PHYSICIAN ON UNIT , NOTIFIED OF CONSULT BY THE DARYL RODRIGUEZ REASON FOR CONSULT: DECUB CONSULTING PHYSICIAN : SRINIVASA MARTIN ORDERED BY : JADE ANDRADE
[2016-09-21] MEDS: BALSAM PERU/CASTOR OIL 60 GM OINT...G. TP SCH ×2 (14:30→21:38)
--- NOTE | 2016-09-21 15:53 | NUR ---
1400 NOTE PATIENT RESTING COMFORTABLY AT THIS TIME. NO COMPLAINTS OF PAIN, AND NO NOTABLE SIGNS OF DISTRESS AT THIS TIME. PATIENT IV SALINE LOCKED PER MD ORDERS, AND BANUELOS IS DRAINING TO GRAVITY. PATIENT BED IN LOWEST POSITION, CALL LIGHT WITHIN REACH, AND SIDE RAILS ARE UP FOR SAFETY. PATIENT REFUSES SEIZURE PADS TO SIDE RAILS, DENIES HISTORY OF SEIZURES. WILL CONTINUE TO MONITOR PATIENT FOR CHANGES IN STATUS. PATIENT HAS DRESSINGS OFF FOR WOUND CARE TREATMENT, AND FOR DR. MARTIN TO VIEW WOUNDS FOR CONSULT.
--- NOTE | 2016-09-21 15:54 | NUR ---
1600 NOTE PATIENT RESTING COMFORTABLY AT THIS TIME. NO COMPLAINTS OF PAIN, AND NO NOTABLE SIGNS OF DISTRESS AT THIS TIME. PATIENT IV SALINE LOCKED PER MD ORDERS, PATIENT REFUSED SCDS, AND BANUELOS IS DRAINING TO GRAVITY. PATIENT BED IN LOWEST POSITION, CALL LIGHT WITHIN REACH, AND SIDE RAILS ARE UP FOR SAFETY. PATIENT REFUSES SEIZURE PADS TO SIDE RAILS, DENIES HISTORY OF SEIZURES. WILL CONTINUE TO MONITOR PATIENT FOR CHANGES IN STATUS. PATIENT WILL NOT NEED SURGERY FOR I&D PER DR. MARTIN. WILL TREAT WOUNDS TOPICALLY. MET WITH NILDA RODDING ANODE WORKER. RECOMMENDS VENELEX OINTMENT, IODOFORM, FOAM, AND OPSITE DRESSING TO ABDOMEN. FOAM AND VENELEX TO COCCYX WOUND. WAITING FOR VENELEX OINTMENT FROM PHARMACY.
[2016-09-21 17:57] VITALS: BP 114/78; PULSE 80; RESP 20; TEMP 97.5; O2SAT 96
[2016-09-21 19:00] VITALS: BP 114/77; PULSE 90; RESP 16; TEMP 97.9; O2SAT 96
--- NOTE | 2016-09-21 19:15 | NUR ---
change of shift.pt.assessed.pt.presents bedrest status.colostomy,welsh catheter.pt.presents history;sx. padding for sx precautions @the bedside.pt.presents room air:o2 sat% stable.i have removed the dinner tray i have conveyed to the pt.the availbility of snacks.call light w/in pt's reach.
[2016-09-21 20:00] VITALS: BP 114/77; PULSE 90; RESP 16; TEMP 97.9; O2SAT 96
--- NOTE | 2016-09-21 20:00 | NUR ---
pt.assessed.v/s assessed;values w/in normal limits.no c/o pain,nausea.nor sob upon excertion.pt.presents colostomy:llq.wounds;sacrum:mid-abdomen.dsg changed pr day shift;aminahrn/mely wound-care nsg.iv lock access rt.forearm.i have conveyed to the pt.that snacks are available.pt.presents no request.pt. presents rt.arm;rom compromised.lower extremities weakness.lt.arm gross rom movements.call light w/in pt's reach.
--- NOTE | 2016-09-21 20:15 | NUR ---
i have assessed the blood glucose;107mg/dl.pt.inquired if the blood glucose assessment was still active order; i have reviewed the pt's orders blood glucose assessment;ac/hs is active.i have conveyed tot the pt.the order is currently active.
--- NOTE | 2016-09-21 21:00 | NUR ---
2100p medications administered;lovenox;80mg sq.the medications reiterated to the pt. objective;indication.abx;ivpb administered;i have added an iv extention to existing iv access plug. call light w/in pt's reach.i have inquired if the pt.presents request.i have reiterated that juice is available.pt.requested orange juice.i have provided the juice.
[2016-09-21] MEDS: BALSAM PERU/CASTOR OIL 60 GM OINT...G. TP PRN ×2 (21:11→21:38)
--- NOTE | 2016-09-21 22:00 | NUR ---
pt.assessed.pt.re-positioned.i have dis connected the maintance iv fluids line per pt's request;abx;ivpb has completed infusion.call light w/in pt's reach.
--- NOTE | 2016-09-21 22:32 | NUR ---
i have emptied the welsh catheter.i have inquired if the pt.presents request.pt.stated no he is fine. call light w/in pt's reach.
--- NOTE | 2016-09-22 | NUR ---
pt.assessed.v/s assessed;values w/in normal limits.pt.presents quiescent affect;calm,asleep. no distress/discomfort manifested.call light w/in pt's reach.
[2016-09-22 00:46] VITALS: BP 130/76; PULSE 85; RESP 21; TEMP 98.7; O2SAT 98
--- NOTE | 2016-09-22 00:59 | NUR ---
i have emptied the welsh catheter.pt.presents quiescent affct;calm,asleep. no distress/discomfort manifested.call light w/in pt's reach.
[2016-09-22] MEDS: IPRATROPIUM/ALBUTEROL SULFATE 3 ML AMPUL.NEB INH SCH ×2 (01:00→20:50)
--- NOTE | 2016-09-22 02:00 | NUR ---
pt.assessed.pt.presents quiescent affect;calm,asleep.no distress/discomfort manifested. call ligt w/in pt's reach.
--- NOTE | 2016-09-22 04:00 | NUR ---
pt.assessed.v/s assessed;values w/in normal limits.no c/o pain,nausea.pt.presents quiescent affect;calm, asleep.call light w/in pt's reach.
[2016-09-22 04:48] VITALS: BP 126/15; PULSE 91; RESP 21; TEMP 98.6; O2SAT 99
--- NOTE | 2016-09-22 06:00 | NUR ---
pt.assessed.blood glucose assessed.91mg/dl.wounds assessed.colostomy emptied/cleaned. no requests @this hour.call light w/in pt's reach.
[2016-09-22] MEDS: METOCLOPRAMIDE HCL 10 MG TABLET PO SCH ×3 (06:04→21:19)
[2016-09-22 08:00] VITALS: BP 119/79; PULSE 95; RESP 18; TEMP 97.6; O2SAT 96
--- NOTE | 2016-09-22 08:00 | NUR ---
RN OPENING NOTE PATIENT LYING ON BED WAS ASSESSED, VITAL SIGNS STABLE, PATIENT DENIES PAIN OR DISCOMFORT, PATIENT WILL BE GIVEN HIS MED AT 0900
--- NOTE | 2016-09-22 08:50 | NUR ---
DC PLANNING: F/U and LM alvin Camacho at [facility] [phone] requesting auth for snf and ambulance for pt. returning to [place].
--- NOTE | 2016-09-22 09:26 | NUR ---
DISCHARGE PLANNING Spoke with Lennox at [facility] insurance auth received patient assigned to room 42C RN to report [phone] bed available anytime. RN Jazmine made aware. Patient made aware and is agreeable with discharge and transfer back to SNF. Called contracted ambulance [facility] [phone] spoke with Sanjuana carter BLS transport on will call. Placed transportation packet in nurses station. Pending time to arrange transport from nursing staff.
[2016-09-22] MEDS: DOCUSATE SODIUM 250 MG CAPSULE PO SCH ×3 (10:00→20:42)
[2016-09-22] MEDS: ENOXAPARIN SODIUM 80 MG/0.8 ML SYRINGE SQ SCH ×2 (10:00→20:39)
[2016-09-22] MEDS: CHOLECALCIFEROL (VITAMIN D3) 2,000 UNIT TABLET PO SCH (10:01)
[2016-09-22] MEDS: PANTOPRAZOLE SODIUM 40 MG TAB PO SCH (10:01)
[2016-09-22] MEDS: AMIODARONE HCL 200 MG TABLET PO SCH (10:02)
[2016-09-22] MEDS: MULTIVITS,CA,MINERALS/IRON/FA 1 TABLET PO SCH (10:02)
[2016-09-22] MEDS: MEROPENEM 1 GM in NS 100 ML IV SCH (10:02)
[2016-09-22] MEDS: levETIRAcetam 500 MG TABLET PO SCH ×2 (10:02→20:39)
[2016-09-22] MEDS: ASCORBIC ACID 500 MG TABLET PO SCH (10:03)
[2016-09-22] MEDS: BALSAM PERU/CASTOR OIL 60 GM OINT...G. TP PRN (10:11)
[2016-09-22] MEDS: BALSAM PERU/CASTOR OIL 60 GM OINT...G. TP SCH ×2 (10:13→20:40)
--- NOTE | 2016-09-22 10:36 | NUR ---
NEPHROLOGY CALLED TO DR STALLWORTH, RE: HYDRO. SPOKE TO SCOTT
--- NOTE | 2016-09-22 10:37 | NUR ---
UROLOGY CONSULT CALLED TO DR Falguni SAEZ, RE: HYDRO. SPOKE TO SANDRO
[2016-09-22 12:01] VITALS: BP 100/68; PULSE 92; RESP 20; TEMP 97.6; O2SAT 96
[2016-09-22] MEDS: CEFEPIME 1 GM in D5W 50 ML IV SCH (14:46)
[2016-09-22 17:22] VITALS: BP 105/66; PULSE 89; RESP 20; TEMP 97.5; O2SAT 96
[2016-09-22 19:55] VITALS: BP 109/68; PULSE 90; RESP 18; TEMP 98.3; O2SAT 95
--- NOTE | 2016-09-22 20:00 | NUR ---
NOTES; SEEN PT IN BED WATCHING TV. ON AIR MATTRESS. A/A/O X3, UNCOOPERATIVE AT TIMES. NO APPARENT DISTRESS NOTED. VITAL SIGNS STABLE, AFEBRILE.COLOSTOMY TO THE LEFT ABD INTACT. MINIMAL BROWN LOOSE STOOL IN COLOSTOMY BAG. MID ABDOMINAL WOUND AND SACRAL WOUND WITH DRESSING CLEAN,DRY, AND INTACT. PT REFUSED SCD'S. EDUCATED PT ABOUT THE IMPORTANCE OF SCD. PT STILL REFUSED. BANUELOS CATHETER DRAINING TO GRAVITY YELLOW URINE OUT PUT. PT DENIES ANY PAIN AT THIS TIME. BED LOCKED AND IN LOW POSITION. SIDE RAILS UP X3, BED ALARM ON. CALL LIGHT WITHIN REACH. WILL CONTINUE TO MONITOR
--- NOTE | 2016-09-22 21:10 | NUR ---
NOTES; SCHEDULED PO MEDS ADMINISTERED. BLOOD SUGAR FOUND TO BE 101. NO SIGNS OR SYMPTOMS OF HYPOGLYCEMIA NOTED. NO INSULIN NEEDED PER SLIDING [employer] COVERAGE.
--- NOTE | 2016-09-22 22:17 | NUR ---
CONSENT; PT STATED THAT DR. SAEZ, UROLOGIST EXPLAINED PROCEDURE VERY WELL TO HIM, AND HE UNDERSTAND WHAT WAS EXPLAINED TO HIM. CONSENT SIGNED. EXPLAIN TO PT NOT TO EAT ANY FOOD OR DRINK ANY FLUID/LIQUID, NOTHING BY MOUTH. PT VERBALIZED UNDERSTANDING.
--- NOTE | 2016-09-22 22:30 | NUR ---
COLOSTOMY CARE; LEFT ABD COLOSTOMY BAG EMPTIED. 3OOML OF BROWN LOOSE STOOL EMPTIED. COLOSTOMY BAG CLAMPED AND SECURED.
--- NOTE | 2016-09-23 | NUR ---
NOTES; APPEARED TO BE SLEEPING. EYE CLOSED RESPIRATION EVEN AND UNLABORED. SAFETY MEASURES IN PROGRESS. WILL CONTINUE TO MONITOR.
--- NOTE | 2016-09-23 | NUR ---
NOTES; EXPLAIN TO PT NOT TO EAT ANY FOOD OR DRINK ANY FLUID/LIQUID, NOTHING BY MOUTH AT THIS TIME. PT VERBALIZED UNDERSTANDING.
[2016-09-23 01:29] VITALS: BP 121/78; PULSE 80; RESP 18; TEMP 98.5; O2SAT 99
--- NOTE | 2016-09-23 02:00 | NUR ---
NOTES; CHECKED ON PT, APPEARED TO BE SLEEPING. RESPIRATION EVEN AND UNLABORED. EASILY AROUSED. SAFETY MEASURES IN PROGRESS.
--- NOTE | 2016-09-23 04:07 | NUR ---
NOTES; CHECKED ON PT, APPEARED TO BE SLEEPING. RESPIRATION EVEN AND UNLABORED. EASILY AROUSED. SAFETY MEASURES IN PROGRESS.
[2016-09-23 04:33] VITALS: BP 112/68; PULSE 84; RESP 19; TEMP 98.1; O2SAT 99
--- NOTE | 2016-09-23 05:40 | NUR ---
NOTES; LEFT ABD COLOSTOMY BAG EMPTIED. 50ML OF BROWN LOOSE STOOL EMPTIED. COLOSTOMY BAG CLAMPED AND SECURED. CHG BATH GIVEN BY SECRETARY BOOK KEEPER. SACRAL WOUND DRESSING REMOVED. WOUND BASE AND KEO WOUND IS PINK. NO DRAINAGE NOTED. MID ABDOMINAL WOUND DRESSING REMOVED. KEO WOUND AND WOUND BASE IS PINK. NEW DRESSING APPLIED PER WOUND CARE NURSE ORDER. NEW DRESSING APPLIED PER WOUND ORDERS.
[2016-09-23] MEDS: METOCLOPRAMIDE HCL 10 MG TABLET PO SCH ×3 (06:00→22:02)
[2016-09-23 06:23] LABS: BASOPHILS # (AUTO) 0.1 K/uL (0.0-0.2); EOSINOPHILS # (AUTO) 0.9 K/uL (0.0-0.4); HEMATOCRIT 28.2 % (36-54); LYMPHOCYTES # (AUTO) 0.7 K/uL (1.0-5.5); LYMPHOCYTES % (AUTO) 10.2 % (20.5-51.5); MEAN CORPUSCULAR HEMOGLOBIN 28 pg (27-31); MEAN CORPUSCULAR HGB CONC 32 % (32-36); MEAN CORPUSCULAR VOLUME 87 fL (79.0-98.0); MONOCYTES # (AUTO) 0.9 K/uL (0.0-1.0); MONOCYTES % (AUTO) 12.4 % (1.7-9.3); NEUTROPHILS # (AUTO) 4.6 K/uL (1.8-7.7); NEUTROPHILS % (AUTO) 64.4 % (40.0-70.0); PLATELET COUNT (AUTO) 484 K/uL (130-430); RED BLOOD CELL COUNT(AUTO) 3.25 MIL/uL (4.2-6.2); RED CELL DISTRIBUTION WIDTH 16.1 % (9.0-15.0); WHITE BLOOD COUNT (AUTO) 7.2 K/uL (4.8-10.8)
[2016-09-23 06:36] LABS: ALBUMIN 2.4 g/dL (3.4-4.8); CALCIUM 9.4 mg/dL (8.4-11.0); CREATININE 2.25 mg/dL (0.55-1.30); POTASSIUM 4.5 mmol/L (3.5-5.1); TOTAL BILIRUBIN 0.2 mg/dL (0.0-1.0); TOTAL PROTEIN, SERUM 8.4 g/dL (6.4-8.3)
[2016-09-23] MEDS: IPRATROPIUM/ALBUTEROL SULFATE 3 ML AMPUL.NEB INH SCH ×3 (07:34→20:28)
--- NOTE | 2016-09-23 07:53 | NUR ---
NOTES; ISOLATION PRECAUTION MAINTAINED. DENIES ANY PAIN AT THIS TIME. NPO MAINTAINED. ALL NEEDS ATTENDED. SAFETY MEASURES MAINTAINED
--- NOTE | 2016-09-23 07:56 | NUR ---
AM ROUNDS Pt lying in bed..HL to RFA flushes well...Pt NPO for procedure today..Colostomy with brown liquid inside..FC draining well via gravity...Wounds dressed by night nurse..Dressings C/D/I...Call light/phone w/in reach...will cont to [facility]
[2016-09-23] MEDS: ENOXAPARIN SODIUM 80 MG/0.8 ML SYRINGE SQ SCH ×2 (09:00→20:49)
[2016-09-23] MEDS: ASCORBIC ACID 500 MG TABLET PO SCH (09:00)
[2016-09-23] MEDS: CHOLECALCIFEROL (VITAMIN D3) 2,000 UNIT TABLET PO SCH (09:00)
[2016-09-23] MEDS: BALSAM PERU/CASTOR OIL 60 GM OINT...G. TP SCH ×2 (09:00→20:49)
[2016-09-23] MEDS: DOCUSATE SODIUM 250 MG CAPSULE PO SCH ×2 (09:00→20:49)
[2016-09-23] MEDS: MULTIVITS,CA,MINERALS/IRON/FA 1 TABLET PO SCH (09:00)
[2016-09-23] MEDS: PANTOPRAZOLE SODIUM 40 MG TAB PO SCH (10:15)
[2016-09-23] MEDS: levETIRAcetam 500 MG TABLET PO SCH ×2 (10:15→20:48)
[2016-09-23] MEDS: AMIODARONE HCL 200 MG TABLET PO SCH (10:16)
[2016-09-23] MEDS ORDERED: LR 1,000 ML IV.SOLN IV ONE (10:53)
[2016-09-23] MEDS ORDERED: NS IRRIG SOLN 1000 ML IR ONE (10:53)
[2016-09-23] MEDS ORDERED: MIDAZOLAM HCL 5 MG/5 ML VIAL IVP ONE (10:53)
[2016-09-23] MEDS ORDERED: SEVOFLURANE 15 MIN GAS INH ONE (10:53)
[2016-09-23] MEDS ORDERED: fentaNYL CITRATE 250 MCG/5 ML AMP IV ONE (10:53)
[2016-09-23] MEDS ORDERED: KETOROLAC TROMETHAMINE 30 MG VIAL IVP ONE (10:53)
[2016-09-23] MEDS ORDERED: PROPOFOL 200MG/ 20ML VIAL (DIPRIVAN) IV ONE (10:53)
[2016-09-23] MEDS ORDERED: ONDANSETRON HCL 4 MG/2 ML VIAL IVP ONE (10:53)
--- NOTE | 2016-09-23 11:10 | NUR ---
TRANSPORTED TO O.R. FOR PROCEDURE PT STABLE UPON TRANSPORT
[2016-09-23 11:17] VITALS: BP 118/68; PULSE 60; RESP 18; TEMP 98; O2SAT 98
[2016-09-23] MEDS ORDERED: IOHEXOL 50 ML IV ONE (11:17)
[2016-09-23] MEDS ORDERED: LR 1,000 ML IV SCH (11:31)
[2016-09-23] MEDS ORDERED: MEPERIDINE HCL/PF 25 MG/ML DISP.SYRIN IVP PRN ×2 (11:45)
[2016-09-23] MEDS ORDERED: HYDROmorphone 1 MG INJ. 1 MG/ML AMPUL IVP PRN (11:45)
[2016-09-23] MEDS ORDERED: HYDROmorphone 2 MG/ML VIAL IVP PRN ×2 (11:45)
[2016-09-23] MEDS ORDERED: ONDANSETRON HCL 4 MG/2 ML VIAL IVP PRN (11:45)
--- NOTE | 2016-09-23 12:47 | NUR ---
BACK TO ROOM FROM O.R. PT AWAKE. STABLE. REQUESTING TO EAT...WILL REVIEW AND CARRY OUT ORDERS
[2016-09-23 12:50] VITALS: BP 139/63; PULSE 83; RESP 16; TEMP 97.3; O2SAT 98
[2016-09-23] MEDS: CEFEPIME 1 GM in D5W 50 ML IV SCH (13:34)
--- NOTE | 2016-09-23 13:44 | NUR ---
WOUND RE-EVALUATION: Patient received in a [place] Bed with an Isoflex MIRA mattress, awake, alert, and oriented. Patient is unable to turn independently. Clifford Score is a 16. Intrinsic factors that delay wound healing: Colon Cancer, dehisced wound. Extrinsic factors that delay wound healing: Decreased mobility. Wound care performed by shift commander nurse this morning. Dressing was not removed for assessment, because doing so would decrease wound temperature and return wound healing rate. Wound Assessment: 1) Coccygeal Area: Unstageable pressure ulcer, present on admission. Recommend: Cleanse wound with normal saline. Place moisture barrier cream onto charly-wound. Put Venelex ointment onto wound bed. Pack wound with 1/4 inch iodoform. Cover with foam dressing. Perform wound care daily, and as needed for dressing soiling or dislodgement. 2) Mid Central Abdomen: Acute on chronic Surgical wound, present on admission. Recommend continue: Cleanse wound with normal saline. Place moisture barrier cream onto charly-wound. Put Venelex ointment onto wound bed. Pack wound with TenderWet dressings (if they fit without touching periwound, then pack with 1/2 inch iodoform. Cover with foam dressing. Perform wound care daily, and as needed for dressing soiling or dislodgement. 3) Left Abdominal Area: Colostomy, present on admission. Recommend continue: Cleanse area with mild soap and water. Pat dry. Put SurePrep on charly-stoma and surrounding tissue. Apply Ha's ring around stoma. Cut and shape colostomy pouch (one or two piece pouch) and place left lateral of wound. Apply wound dressing to surgical wound as ordered, and overlap pouch if necessary. Also recommend continued: Encourage and assist patient with repositioning side to side only every 2 hours with pillow support, and off-load pressure areas with pillows for pressure re-distribution. Offload, elevate and float bilateral heels with pillows. Perform skin care and monitor skin integrity Q shift. Use moisture barrier cream on buttocks and other moisture susceptible areas QID and as needed for soiling. Maintain patient on a low air-loss mattress.
--- NOTE | 2016-09-23 15:17 | NUR ---
280 ML OF WATERY BROWN STOOL EMPTIED FROM COLOSTOMY
--- NOTE | 2016-09-23 17:29 | NUR ---
ROUNDS PT REMAINS STABLE..NO CHANGES..ALL NEEDS MET...PT DOES NOT LIKE TO BE INTERRUPTED OFTEN...INFORMED PT TO USE CALL LIGHT/PHONE FOR ASSISTANCE
--- NOTE | 2016-09-23 18:52 | NUR ---
ROUNDS PT REMAINS STABLE...NO CHANGES...WILL CONT TO MONITOR
[2016-09-23 19:15] VITALS: BP 117/77; PULSE 78; RESP 18; TEMP 99.3; O2SAT 93
--- NOTE | 2016-09-23 19:15 | NUR ---
Initial Round Received pt in bed, awake, alert, oriented x4. No s/s of any distress noted. V/S are WNL. IV noted to R f/a g 20, no infiltrate and with good blood return. Colostomy bag noted with dark liquid stool in the bag. F/C noted with clear yellow urine of 100cc in the bag.Noted dressing to abdomen s/p abdominal resection prior to admission. Noted wound in the R foot . Discussed plan of care with pt and verbalized understanding. Bed in low position with call light within reach, will cont to monitor.
--- NOTE | 2016-09-23 21:30 | NUR ---
Rounds Provided snack as requested by pt. No s/s of any distress at this time. Call light within reach, will cont to monitor.
--- NOTE | 2016-09-23 23:58 | NUR ---
Rounds Pt is comfortably resting at this time. No s/s of any distress noted. Call light in reach, will ocnt to monitor.
[2016-09-24] VITALS (7 sets, daily range): BP systolic 88–116; BP diastolic 55–71; PULSE 86–98; RESP 16–21; TEMP 97.1–98.8; O2SAT 96–98
[2016-09-24] MEDS: IPRATROPIUM/ALBUTEROL SULFATE 3 ML AMPUL.NEB INH SCH ×4 (01:00→19:30)
--- NOTE | 2016-09-24 03:43 | NUR ---
Colostomy bag change Change colostomy bag. Stoma site is pink, no redness and no excoriation noted around. Will cont to monitor.
--- NOTE | 2016-09-24 03:46 | NUR ---
Bloody urine Noted blood in urine. Pt denies any pain or discomfort. Flush with N/S with assistance from Bunny charge nurse. No resistance and clear fluid came out. Pt tolerated procedure well. Will cont to monitor.
--- NOTE | 2016-09-24 05:20 | NUR ---
Change dressing Change dressing to abdomen. No s/s of any pain or distress noted. Call light within reach, will cont to monitor.
[2016-09-24] MEDS: METOCLOPRAMIDE HCL 10 MG TABLET PO SCH ×3 (05:27→22:06)
--- NOTE | 2016-09-24 06:17 | NUR ---
Partial bed bath Partial bed bath rendered to pt. No s/s of any distress noted. Call light within reach, will cont to monitor.
[2016-09-24 06:32] LABS: BASOPHILS # (AUTO) 0.1 K/uL (0.0-0.2); BASOPHILS % (AUTO) 0.8 % (0.0-2.0); EOSINOPHILS # (AUTO) 0.1 K/uL (0.0-0.4); EOSINOPHILS % (AUTO) 1.7 % (0.0-4.0); HEMATOCRIT 25.7 % (36-54); HEMOGLOBIN 8.3 g/dL (14.0-18.0); LYMPHOCYTES # (AUTO) 0.9 K/uL (1.0-5.5); LYMPHOCYTES % (AUTO) 10.6 % (20.5-51.5); MEAN CORPUSCULAR HEMOGLOBIN 29 pg (27-31); MEAN CORPUSCULAR HGB CONC 32 % (32-36); MEAN CORPUSCULAR VOLUME 88 fL (79.0-98.0); MONOCYTES % (AUTO) 11.4 % (1.7-9.3); NEUTROPHILS # (AUTO) 6.3 K/uL (1.8-7.7); NEUTROPHILS % (AUTO) 75.5 % (40.0-70.0); PLATELET COUNT (AUTO) 505 K/uL (130-430); RED BLOOD CELL COUNT(AUTO) 2.93 MIL/uL (4.2-6.2); RED CELL DISTRIBUTION WIDTH 16.5 % (9.0-15.0); WHITE BLOOD COUNT (AUTO) 8.4 K/uL (4.8-10.8)
--- NOTE | 2016-09-24 06:54 | NUR ---
Final Round Patient is resting at this time. No s/s of any distress noted. V/S are wnl. All needs met and anticipated by noc nurses. Bed in low position with side rails up x2. Call light within reach, will endorse
[2016-09-24 07:07] LABS: ALBUMIN 2.4 g/dL (3.4-4.8); CALCIUM 9.2 mg/dL (8.4-11.0); CREATININE 2.04 mg/dL (0.55-1.30); PHOSPHORUS 5.1 mg/dL (2.7-4.5); POTASSIUM 4.2 mmol/L (3.5-5.1); TOTAL BILIRUBIN 0.2 mg/dL (0.0-1.0); TOTAL PROTEIN, SERUM 8.1 g/dL (6.4-8.3)
--- NOTE | 2016-09-24 07:40 | NUR ---
am notes- in bed, pt wants to sleep first at this time.
--- NOTE | 2016-09-24 08:30 | NUR ---
notes- in bed eating awake, alert and oriented. left colostomy draining soft stool. abdominal dressing dry and intact, was changed this morning. small ulcer noted on the coccyx area with dressing. welsh cath draining pinkish urine, no clots noted. denies any pain or discomfort. maintain on contact isolation for mrsa nares. enc. to call for help as needed. will monitor.
[2016-09-24] MEDS: CHOLECALCIFEROL (VITAMIN D3) 2,000 UNIT TABLET PO SCH (09:26)
[2016-09-24] MEDS: ENOXAPARIN SODIUM 80 MG/0.8 ML SYRINGE SQ SCH ×2 (09:26→22:06)
[2016-09-24] MEDS: ASCORBIC ACID 500 MG TABLET PO SCH (09:27)
[2016-09-24] MEDS: AMIODARONE HCL 200 MG TABLET PO SCH (09:27)
[2016-09-24] MEDS: levETIRAcetam 500 MG TABLET PO SCH ×2 (09:27→22:07)
[2016-09-24] MEDS: MULTIVITS,CA,MINERALS/IRON/FA 1 TABLET PO SCH (09:27)
[2016-09-24] MEDS: BALSAM PERU/CASTOR OIL 60 GM OINT...G. TP SCH ×2 (09:27→22:08)
[2016-09-24] MEDS: DOCUSATE SODIUM 250 MG CAPSULE PO SCH ×2 (09:27→21:00)
[2016-09-24] MEDS: PANTOPRAZOLE SODIUM 40 MG TAB PO SCH (09:27)
--- NOTE | 2016-09-24 10:21 | NUR ---
notes- resting at this time. Pt wants to sleep. pt stated he didn't sleep good last night. enc. pt to call if he needs help. Pt verbalize understanding.
[2016-09-24] MEDS: CEFEPIME 1 GM in D5W 50 ML IV SCH (13:58)
--- NOTE | 2016-09-24 14:38 | NUR ---
notes- reading books. denies any pain. no distress noted. enc. to change position q2 ours.
--- NOTE | 2016-09-24 17:08 | NUR ---
notes- colostomy bag emptied with semi soft stool. denies any pain or discomfort.
--- NOTE | 2016-09-24 17:09 | NUR ---
urine- urine output still pinkish in color. no clots noted. denies any pain or discomfort.
--- NOTE | 2016-09-24 18:53 | NUR ---
notes- in bed awake...small leakage noted on the pad from catheter. welsh cath with good ouput and still pinkish in color, no clots noted. no distress noted. all needs meet. will endorse
--- NOTE | 2016-09-24 20:00 | NUR ---
Initial PM Note Pt was received in bed sleeping, but easily arousable. No acute distress noted. No c/o pain or discomfort. Lt abdominal colostomy bag noted with small amount of watery and formed brownish stool. Pt stated he doesn't need colostomy care at this time. Tolbert cath to gravity drainage noted with blood tinged urine, but no blood clots seen. Saline lock is patent in RFA without any signs of infiltration. Fall and safety precautions are in place.
--- NOTE | 2016-09-24 22:08 | NUR ---
Wound Care Sacral wound dressing change done per wound care orders. Wound noted with pinkish and yellowish areas. Small amount of serosanguineous drainage noted.
[2016-09-25] VITALS (7 sets, daily range): BP systolic 102–111; BP diastolic 64–78; PULSE 89–99; RESP 16–18; TEMP 97.2–98; O2SAT 96–99
--- NOTE | 2016-09-25 | NUR ---
Rounds Pt is sleeping comfortably in bed. Call light is with pt and bed alarm is on.
[2016-09-25] MEDS: IPRATROPIUM/ALBUTEROL SULFATE 3 ML AMPUL.NEB INH SCH ×4 (01:00→20:12)
--- NOTE | 2016-09-25 02:00 | NUR ---
Rounds Pt is sleeping without any distress noted. Fall and safety precautions are in place.
--- NOTE | 2016-09-25 04:00 | NUR ---
Rounds Pt is sleeping without any distress noted. Call light is with pt and bed alarm is on.
[2016-09-25] MEDS: METOCLOPRAMIDE HCL 10 MG TABLET PO SCH ×3 (06:13→21:08)
--- NOTE | 2016-09-25 06:38 | NUR ---
Closing Note Pt is resting quietly in bed and denies pain or discomfort. All pt's needs were attended to. No fall or injury noted this shift. Will endorse to day shift nurse.
[2016-09-25 06:41] LABS: CALCIUM 9.3 mg/dL (8.4-11.0); CREATININE 1.82 mg/dL (0.55-1.30); POTASSIUM 4.5 mmol/L (3.5-5.1)
[2016-09-25 06:43] LABS: BASOPHILS # (AUTO) 0.1 K/uL (0.0-0.2); HEMOGLOBIN 9.1 g/dL (14.0-18.0); MONOCYTES # (AUTO) 0.9 K/uL (0.0-1.0); NEUTROPHILS # (AUTO) 5.6 K/uL (1.8-7.7); WHITE BLOOD COUNT (AUTO) 8.4 K/uL (4.8-10.8)
[2016-09-25 06:53] LABS: BASOPHILS % (AUTO) 1.1 % (0.0-2.0); EOSINOPHILS % (AUTO) 11.5 % (0.0-4.0); LYMPHOCYTES # (AUTO) 0.8 K/uL (1.0-5.5); LYMPHOCYTES % (AUTO) 9.5 % (20.5-51.5); MEAN CORPUSCULAR HEMOGLOBIN 29 pg (27-31); MEAN CORPUSCULAR HGB CONC 32 % (32-36); MEAN CORPUSCULAR VOLUME 88 fL (79.0-98.0); MONOCYTES % (AUTO) 10.4 % (1.7-9.3); NEUTROPHILS % (AUTO) 67.5 % (40.0-70.0); PLATELET COUNT (AUTO) 542 K/uL (130-430); RED BLOOD CELL COUNT(AUTO) 3.19 MIL/uL (4.2-6.2); RED CELL DISTRIBUTION WIDTH 16.3 % (9.0-15.0)
--- NOTE | 2016-09-25 07:33 | NUR ---
OPENING NOTE PATIENT RESTING COMFORTABLY ON HIS RIGHT SIDE. NO COMPLAINTS OF PAIN AT THIS TIME. NO NOTABLE SIGNS OF DISTRESS AT THIS TIME. RECEIVED REPORT FROM PROPELLANT CHARGE LOADER RN. PATIENTS BED IN LOWEST POSITION, CALL LIGHT WITHIN REACH, AND SIDE RAILS ARE UP FOR SAFETY. PATIENT HAS BANUELOS CATHETER DRAINING TO GRAVITY, BLOOD TINGED URINE, NO CLOTS NOTED. WILL CONTINUE TO MONITOR PATIENT FOR CHANGES IN STATUS.
[2016-09-25] MEDS: levETIRAcetam 500 MG TABLET PO SCH ×2 (08:54→21:08)
[2016-09-25] MEDS: ASCORBIC ACID 500 MG TABLET PO SCH (08:54)
[2016-09-25] MEDS: DOCUSATE SODIUM 250 MG CAPSULE PO SCH ×2 (08:54→21:08)
[2016-09-25] MEDS: PANTOPRAZOLE SODIUM 40 MG TAB PO SCH (08:54)
[2016-09-25] MEDS: MULTIVITS,CA,MINERALS/IRON/FA 1 TABLET PO SCH (08:55)
[2016-09-25] MEDS: CHOLECALCIFEROL (VITAMIN D3) 2,000 UNIT TABLET PO SCH (08:55)
[2016-09-25] MEDS: AMIODARONE HCL 200 MG TABLET PO SCH (08:56)
[2016-09-25] MEDS: ENOXAPARIN SODIUM 80 MG/0.8 ML SYRINGE SQ SCH (08:56)
[2016-09-25] MEDS: BALSAM PERU/CASTOR OIL 60 GM OINT...G. TP SCH ×2 (08:56→21:10)
--- NOTE | 2016-09-25 10:30 | NUR ---
1000 NOTE PATIENT RESTING COMFORTABLY ON HIS LEFT SIDE. NO COMPLAINTS OF PAIN AT THIS TIME. NO NOTABLE SIGNS OF DISTRESS AT THIS TIME. PATIENT COLOSTOMY BAG AND APPLIANCE CHANGED. PATIENTS BED IN LOWEST POSITION, CALL LIGHT WITHIN REACH, AND SIDE RAILS ARE UP FOR SAFETY. PATIENT HAS BANUELOS CATHETER DRAINING TO GRAVITY, BLOOD TINGED URINE, NO CLOTS NOTED. WILL CONTINUE TO MONITOR PATIENT FOR CHANGES IN STATUS.
[2016-09-25] MEDS ORDERED: EPOETIN ALFA 4,000 UNITS/ML VIAL SUBCUT ONE (10:45)
[2016-09-25] MEDS ORDERED: NEPHROVITE, (FOLIC ACID/VITAMIN B COMP W-C 1 TAB) PO ONE (11:30)
[2016-09-25] MEDS: SOD FERRIC GLUC COMPLEX/SUC 125 MG in NS 100 ML IV SCH (12:03)
--- NOTE | 2016-09-25 12:59 | NUR ---
1200 NOTE PATIENT RESTING COMFORTABLY SUPINE IN BED EATING LUNCH. NO COMPLAINTS OF PAIN AT THIS TIME. NO NOTABLE SIGNS OF DISTRESS AT THIS TIME. PATIENTS BED IN LOWEST POSITION, CALL LIGHT WITHIN REACH, AND SIDE RAILS ARE UP FOR SAFETY. PATIENT HAS BANUELOS CATHETER DRAINING TO GRAVITY, BLOOD TINGED URINE, NO CLOTS NOTED. WILL CONTINUE TO MONITOR PATIENT FOR CHANGES IN STATUS.
[2016-09-25] MEDS: CEFEPIME 1 GM in D5W 50 ML IV SCH (14:03)
--- NOTE | 2016-09-25 14:38 | NUR ---
1400 NOTE PATIENT RESTING COMFORTABLY IN BED POSITIONED ON PILLOW SUPPORT. MIRA MATTRESS. NO COMPLAINTS OF PAIN AT THIS TIME. NO NOTABLE SIGNS OF DISTRESS AT THIS TIME. PATIENTS BED IN LOWEST POSITION, CALL LIGHT WITHIN REACH, AND SIDE RAILS ARE UP FOR SAFETY. PATIENT HAS BANUELOS CATHETER DRAINING TO GRAVITY, BLOOD TINGED URINE, NO CLOTS NOTED. BANUELOS CATHETER EMPTIED, I & O RECORDED. WILL CONTINUE TO MONITOR PATIENT FOR CHANGES IN STATUS.
--- NOTE | 2016-09-25 16:24 | NUR ---
1600 NOTE PATIENT RESTING COMFORTABLY IN BED POSITIONED ON PILLOW SUPPORT. MIRA MATTRESS. NO COMPLAINTS OF PAIN AT THIS TIME. NO NOTABLE SIGNS OF DISTRESS AT THIS TIME. PATIENTS BED IN LOWEST POSITION, CALL LIGHT WITHIN REACH, AND SIDE RAILS ARE UP FOR SAFETY. PATIENT HAS BANUELOS CATHETER DRAINING TO GRAVITY, BLOOD TINGED URINE, NO CLOTS NOTED. BANUELOS CATHETER EMPTIED. WILL CONTINUE TO MONITOR PATIENT FOR CHANGES IN STATUS.
--- NOTE | 2016-09-25 18:42 | NUR ---
1800/CLOSING NOTE WAITING TO GIVE REPORT TO CAR DELIVERER NURSE. PATIENT RESTING COMFORTABLY IN BED POSITIONED ON PILLOW SUPPORT. MIRA MATTRESS. NO COMPLAINTS OF PAIN AT THIS TIME. NO NOTABLE SIGNS OF DISTRESS AT THIS TIME. ALL NEEDS MET. WOUND CARE COMPLETED TO ABDOMINAL WOUND AND COCCYX WOUND. PATIENTS BED IN LOWEST POSITION, CALL LIGHT WITHIN REACH, AND SIDE RAILS ARE UP FOR SAFETY. PATIENT HAS BANUELOS CATHETER DRAINING TO GRAVITY, BLOOD TINGED URINE, NO CLOTS NOTED. BANUELOS CATHETER EMPTIED. WILL CONTINUE TO MONITOR PATIENT FOR CHANGES IN STATUS.
--- NOTE | 2016-09-25 19:15 | NUR ---
change of shift.pt.presents stable status.pt.is isolation status.pt.presents room air% stable. iv access line:iv locked.pt.presents welsh catheter:blood tinged urine:s/p cystoscopy.pt.presents welsh catheter.call light w/in pt's reach.pt.presents hx:seizures.pt.refuses the padding of the side rails.
--- NOTE | 2016-09-25 20:00 | NUR ---
pt.aassessed.v/s assessed:values w/in normal limits.no request@this hour:ie:snacks,blankets. no c/o pain,nausea.call light w/in normal limits.
--- NOTE | 2016-09-25 21:00 | NUR ---
2100p medications administered.medications indications reviewed w/ the pt. call light w/in the pt's reach.
--- NOTE | 2016-09-25 22:00 | NUR ---
pt.assessed.no requested @this hour.i have reiterated to the pt.that snacks are available. no request@this hour.call light w/in the pt's reach.
[2016-09-26] VITALS (7 sets, daily range): BP systolic 91–108; BP diastolic 52–68; PULSE 82–99; RESP 16–19; TEMP 97.6–98.6; O2SAT 96–100
--- NOTE | 2016-09-26 | NUR ---
pt.assessed;v/s assessed:values w/in normal limits.no c/o pain,nausea.no request@this hour. call mackth w/in pt's reach.
[2016-09-26] MEDS: IPRATROPIUM/ALBUTEROL SULFATE 3 ML AMPUL.NEB INH SCH ×4 (01:00→19:44)
--- NOTE | 2016-09-26 01:00 | NUR ---
i have assessed the weight of the pt.2/t hx;renal insufficency.
--- NOTE | 2016-09-26 02:00 | NUR ---
pt.assessed.pt.presents quiescent affect;calm,asleep.no distress/discomfort manifested. call aye w/in the pt's reach.
--- NOTE | 2016-09-26 03:00 | NUR ---
pt.requested the assistance w/the colostomy.i have emptied and cleaned the colostomy. i have emptied the welsh catheter.no further request@this hour.
--- NOTE | 2016-09-26 04:00 | NUR ---
pt.assessed.v/s assessed:values w/in normal limits.no c/o pain,nausea.no request@this hour. callight w/in the pt's reach.
--- NOTE | 2016-09-26 06:00 | NUR ---
pt.assessed.pt.presents quiescent affect;calm,asleep.no distres/discomfort manifested. call light w/i the pt's reach.
[2016-09-26] MEDS: METOCLOPRAMIDE HCL 10 MG TABLET PO SCH ×3 (06:49→21:10)
[2016-09-26 07:56] LABS: BASOPHILS # (AUTO) 0.1 K/uL (0.0-0.2); HEMATOCRIT 26.3 % (36-54); HEMOGLOBIN 8.6 g/dL (14.0-18.0); MEAN CORPUSCULAR HEMOGLOBIN 29 pg (27-31); MEAN CORPUSCULAR HGB CONC 33 % (32-36); MEAN CORPUSCULAR VOLUME 89 fL (79.0-98.0); RED BLOOD CELL COUNT(AUTO) 2.97 MIL/uL (4.2-6.2); RED CELL DISTRIBUTION WIDTH 16.5 % (9.0-15.0); WHITE BLOOD COUNT (AUTO) 9.3 K/uL (4.8-10.8)
--- NOTE | 2016-09-26 08:00 | NUR ---
OPENING NOTE PATIENT IS DROWSY, ALERT AND ORIENTED. DENIES ANY PAIN OR DISTRESS AT THIS TIME.
[2016-09-26 08:21] LABS: EOSINOPHILS # (AUTO) 0.9 K/uL (0.0-0.4); EOSINOPHILS % (AUTO) 10.2 % (0.0-4.0); LYMPHOCYTES # (AUTO) 0.8 K/uL (1.0-5.5); LYMPHOCYTES % (AUTO) 8.6 % (20.5-51.5); NEUTROPHILS # (AUTO) 6.2 K/uL (1.8-7.7); NEUTROPHILS % (AUTO) 69.2 % (40.0-70.0)
[2016-09-26 08:24] LABS: CALCIUM 9.4 mg/dL (8.4-11.0); CREATININE 1.73 mg/dL (0.55-1.30); POTASSIUM 4.5 mmol/L (3.5-5.1)
[2016-09-26] MEDS: AMIODARONE HCL 200 MG TABLET PO SCH (09:00)
--- NOTE | 2016-09-26 09:50 | NUR ---
AMIODARONE HELD FOR LOW BP
[2016-09-26] MEDS: PANTOPRAZOLE SODIUM 40 MG TAB PO SCH (09:56)
[2016-09-26] MEDS: DOCUSATE SODIUM 250 MG CAPSULE PO SCH ×2 (09:56→21:11)
[2016-09-26] MEDS: ASCORBIC ACID 500 MG TABLET PO SCH (09:56)
[2016-09-26] MEDS: levETIRAcetam 500 MG TABLET PO SCH ×2 (09:56→21:10)
[2016-09-26] MEDS: NEPHROVITE, (FOLIC ACID/VITAMIN B COMP W-C 1 TAB) PO SCH (09:57)
[2016-09-26] MEDS: MULTIVITS,CA,MINERALS/IRON/FA 1 TABLET PO SCH (09:57)
[2016-09-26] MEDS: CHOLECALCIFEROL (VITAMIN D3) 2,000 UNIT TABLET PO SCH (09:57)
[2016-09-26] MEDS: BALSAM PERU/CASTOR OIL 60 GM OINT...G. TP SCH ×2 (09:58→21:13)
[2016-09-26 11:02] LABS: PLATELET COUNT (AUTO) 583 K/uL (130-430)
[2016-09-26] MEDS: SOD FERRIC GLUC COMPLEX/SUC 125 MG in NS 100 ML IV SCH (11:25)
--- NOTE | 2016-09-26 11:29 | NUR ---
PATIENT VISITED BY DR HELLER
[2016-09-26] MEDS: CEFEPIME 1 GM in D5W 50 ML IV SCH (13:37)
--- NOTE | 2016-09-26 13:37 | NUR ---
PATIENT REPORTS FEELING MORE ALERT AND AWAKE AFTER LUNCH, CONTINUES TO DENY ANY PAIN OR ACUTE DISTRESS.
--- NOTE | 2016-09-26 15:03 | NUR ---
PHYSICAL THERAPY CO-SIGN The Physical Therapy Progress Notes documented by Cryolite Recovery Operator have been reviewed. I CONCUR W/SHAG TRUCK DRIVER NOTE; CONT PER TX PLAN Reviewed/Co-Signed by: Hanna Toro PT Documentation Done by: PANFILO GARCIA SHAG TRUCK DRIVER Addendum: 09/26/16 at 1504 by Hanna Toro PT Amended: Links added.
--- NOTE | 2016-09-26 16:28 | NUR ---
PATIENT IS AWAKE, WATCHING TV. NO SIGNS OF DISTRESS. DENIES ANY PAIN AT THIS TIME.
--- NOTE | 2016-09-26 18:42 | NUR ---
CLOSING NOTE PATIENT REMAINS AWAKE, ALERT AND ORIENTED. DENIES PAIN. DRESSINGS DRY AND INTACT. NO SIGNS OF DISTRESS. DENIES ANY PAIN AT THIS TIME. ABLE TO TURN HIMSELF AND STATE HIS NEEDS.
--- NOTE | 2016-09-26 19:43 | NUR ---
500 ML OF FOUL SMELLING LOOSE STOOL EMPTIED FROM COLOSTOMY. WILL SEND C DFII ASSAY IF NONE HAS BEEN SENT RECENTLY
--- NOTE | 2016-09-26 19:45 | NUR ---
initial nursing notes: Patient awake in bed. Patient has IV access on the right forearm. Patient's colostomy bag on the LLQ of the abdomen is intact. Patient denies of having pain.
--- NOTE | 2016-09-26 21:45 | NUR ---
nursing rounds: Patient watching television. Patient's Tolbert catheter is draining yellow colored urine output.
--- NOTE | 2016-09-26 23:45 | NUR ---
nursing rounds: Patient asleep in bed. Patient has no shortness of breath.
[2016-09-27] MEDS: IPRATROPIUM/ALBUTEROL SULFATE 3 ML AMPUL.NEB INH SCH ×4 (00:21→19:30)
--- NOTE | 2016-09-27 01:45 | NUR ---
nursing rounds: Patient sleeping in bed. Patient's breathing pattern is regular and unlabored.
--- NOTE | 2016-09-27 03:45 | NUR ---
nursing rounds: Patient asleep in bed. Patient has no respiratory distress.
[2016-09-27 04:16] VITALS: BP 100/64; PULSE 93; RESP 22; TEMP 97.9; O2SAT 96
[2016-09-27] MEDS: METOCLOPRAMIDE HCL 10 MG TABLET PO SCH ×3 (05:41→22:31)
--- NOTE | 2016-09-27 05:45 | NUR ---
nursing rounds: Patient calmly resting in bed. Call light within patient's reach.
--- NOTE | 2016-09-27 07:45 | NUR ---
closing nursing notes: Patient is awake, alert and oriented X 4. Patient is in no acute respiratory distress. No episodes of fall and no injuries throughout the power and recovery shift engineer. Provided nursing report to incoming morning shift nurse, DARYL Pearson, at patient's bedside.
--- NOTE | 2016-09-27 08:00 | NUR ---
OPENING NOTE PATIENT IS AWAKE BUT DROWSY. VITALS OBTAINED. NO SIGNS OF DISTRESS. NOTED TO BE DISCONNECTED FROM IVF, FLUSHED IV, PATENT AND NO SIGNS OF REDNESS OR INFILTRATION. DENIES ANY ACUTE PAIN OR NAUSEA AT THIS TIME.
--- NOTE | 2016-09-27 08:35 | NUR ---
PHYSICAL THERAPIST AT BEDSIDE WITH PATIENT.
[2016-09-27 08:44] VITALS: BP 101/67; PULSE 90; RESP 16; TEMP 97.3; O2SAT 96
[2016-09-27] MEDS: levETIRAcetam 500 MG TABLET PO SCH ×2 (09:17→22:32)
[2016-09-27] MEDS: MULTIVITS,CA,MINERALS/IRON/FA 1 TABLET PO SCH (09:17)
[2016-09-27] MEDS: PANTOPRAZOLE SODIUM 40 MG TAB PO SCH (09:18)
[2016-09-27] MEDS: DOCUSATE SODIUM 250 MG CAPSULE PO SCH ×2 (09:18→22:47)
[2016-09-27] MEDS: NEPHROVITE, (FOLIC ACID/VITAMIN B COMP W-C 1 TAB) PO SCH (09:18)
[2016-09-27] MEDS: CHOLECALCIFEROL (VITAMIN D3) 2,000 UNIT TABLET PO SCH (09:18)
[2016-09-27] MEDS: ASCORBIC ACID 500 MG TABLET PO SCH (09:18)
[2016-09-27] MEDS: AMIODARONE HCL 200 MG TABLET PO SCH (09:19)
[2016-09-27] MEDS: BALSAM PERU/CASTOR OIL 60 GM OINT...G. TP SCH ×2 (09:19→22:39)
--- NOTE | 2016-09-27 11:28 | NUR ---
PATIENT IS SLEEPING. NO SIGNS OF DISTRESS.
[2016-09-27] MEDS: SOD FERRIC GLUC COMPLEX/SUC 125 MG in NS 100 ML IV SCH (11:56)
[2016-09-27 12:33] VITALS: BP 110/64; PULSE 84; RESP 17; TEMP 97.8; O2SAT 98
--- NOTE | 2016-09-27 12:40 | NUR ---
Nutrition F/U Admitting Diagnosis UTI, sepsis, pyelonephritis, moderate protein malnutrition Reviewed Pertinent Medical/Surgical Hx Patient Medical Record Medical History Comment: Colon CA, s/p small bowel resection, SBO, abd wall dehiscence per MD notes Subjective Information Pt seen resting in bed w/ lunch atop bedside table. Pt reported good appetite, c/w PO intake records. Pt reported feeling satisfied w/ current diet, and doesn't feel hungry in-between meals. Pt pending C. diff stool study per MD orders. Pt reported that he has been having loose stools (pt has +colostomy for L lower abd). Per EMR, PO Intakes: 100% average x16 meals. Output (stool): 200 ml 09/25/16. Abd is non-distended w/ active bowel sounds. I/O: 600/1000 (-400 ml) per 12 hours. Current diet is appropriate at this time. Pt declined nutrition education. Current Diet Order/Nutrition Support [facility] BID x1 day Patient/Significant Other Able To Verbalize Education Provided Not Indicated Pertinent Medications theragran-m, zinc sulfate, VIT D-3, VIT C, colace, reglan, zofran, ferric sodium gluconate complex/NaCl IV Pertinent Labs Na 134 L, POC BG 92 WNL (improved), BUN 42 H, CRE 1.43 H H, eGFR 43 L, ALB 2.4 L Height (Feet) 6 feet Height (Inches) 3.00 inches Weight (Pounds) 194 pounds (admission) NEW WT: 186 lb, 84 kg (09/26/16) per EMR Weight (Calculated Kilograms) 87.873092 kilograms Patient Weight 87.997 kg Body Mass Index 24.25 kg/m2 Usual Weight 205 lbs %UBW 95 %IBW 99 [place]/Adjusted Body Weight IBW: 196 lb, 89 kg Recent Weight Change Yes - Possible 11 lb wt loss since June 2016; 5% severe wt change in 3 months Weight Status Appropriate Gastrointestinal Symptoms None Last BM 09/27/16 Food Allergies No Usual Diet At Home Regular, no restrictions Skin Integrity Comment: Clifford scale: 22; per nursing notes, coccyx: redness and medial abd: incision Current % PO Good (75-100%) Estimated Energy Expenditure (kcals/day) 7916-8528 kcal/day (BEE x 1.2-1.5 CBW for sepsis) Estimated Protein Required (g/day) 132-176 gm/day (1.5-2 gm/kg CBW for sepsis) Estimated Fluid Required (l/day) 2.6-3 L/day (30-35 ml/kg CBW for maintenance) Problem/Etiology/Signs/Symptoms Increased nutritional needs related to metabolic demands as evidenced by estimated nutritional requirements for sepsis. *ongoing -- met w/ good PO intakes Expected Outcomes/Goals - Monitor appetite and PO intakes w/ goal of pt meeting 75% of estimated nutritional needs, labs trending WNL, normal GI function, and skin integrity/wt maintenance Dietitian Recommendations * Recommend continuing renal standard diet per MD Follow Up Low Risk: F/U in 7 days
--- NOTE | 2016-09-27 13:00 | NUR ---
PHYSICAL THERAPY CO-SIGN The Physical Therapy Progress Notes documented by Fig Caprifier have been reviewed. Reviewed/Co-Signed by: Ksenia Hdaley, PT Documentation Done by: Matt Adams PTA I concur with the documentation of this MECHANICAL ENGINEERING TECHNICIAN. Plan: continue PT as per plan of care if he remains in this hospital. Addendum: 09/27/16 at 1458 by Ksenia Hadley PT Amended: Links added.
--- NOTE | 2016-09-27 14:35 | NUR ---
COLOSTOMY BAG CHANGED. SAMPLE OF C DIFF SPECIMEN SENT TO LAB. DRESSING ON ABDOMEN CHANGED PER ORDERS. TOLERATED WELL. PATIENT GIVEN BED BATH AND SKIN ASSESSMENT PERFORMED
[2016-09-27] MEDS: CEFEPIME 1 GM in D5W 50 ML IV SCH (14:40)
--- NOTE | 2016-09-27 15:59 | NUR ---
PATIENT IS RESTING, NO ACUTE DISTRESS. NO COMPLAINTS OF PAIN. WATCHING TV AND PLEASANT/CALM AFFECT
[2016-09-27 16:31] VITALS: BP 116/62; PULSE 80; RESP 17; TEMP 97.4; O2SAT 98
[2016-09-28] VITALS: BP 101/62; PULSE 97; RESP 17; TEMP 97.9; O2SAT 96
[2016-09-28] MEDS: IPRATROPIUM/ALBUTEROL SULFATE 3 ML AMPUL.NEB INH SCH ×4 (01:00→19:47)
[2016-09-28 05:20] VITALS: BP 99/59; PULSE 100; RESP 16; TEMP 98.4; O2SAT 96
[2016-09-28] MEDS: METOCLOPRAMIDE HCL 10 MG TABLET PO SCH ×3 (07:47→22:11)
[2016-09-28 08:00] VITALS: BP 108/62; PULSE 83; RESP 18; TEMP 98.2; O2SAT 98
--- NOTE | 2016-09-28 08:00 | NUR ---
NOTE PT SITTING UP IN BED EATING HIS BREAKFAST. NO SOB/RESP DISTRESS OR PAIN/DISCOMFORT NOTED AT THIS TIME. IVF'S INFUSING WELL THROUGH RIGHT HAND IV SITE. NO NEEDS NOTED. COLOSTOMY BAG ON LEFT ABDOMINAL SITE INTACT AND DRAINING WELL AT THIS TIME. CALL LIGHT WITHIN REACH.
[2016-09-28] MEDS: CHOLECALCIFEROL (VITAMIN D3) 2,000 UNIT TABLET PO SCH (08:17)
[2016-09-28] MEDS: levETIRAcetam 500 MG TABLET PO SCH ×2 (08:18→22:11)
[2016-09-28] MEDS: AMIODARONE HCL 200 MG TABLET PO SCH (08:18)
[2016-09-28] MEDS: PANTOPRAZOLE SODIUM 40 MG TAB PO SCH (08:18)
[2016-09-28] MEDS: DOCUSATE SODIUM 250 MG CAPSULE PO SCH ×2 (08:18→22:11)
[2016-09-28] MEDS: MULTIVITS,CA,MINERALS/IRON/FA 1 TABLET PO SCH (08:19)
[2016-09-28] MEDS: ASCORBIC ACID 500 MG TABLET PO SCH (08:20)
[2016-09-28] MEDS: NEPHROVITE, (FOLIC ACID/VITAMIN B COMP W-C 1 TAB) PO SCH (08:20)
--- NOTE | 2016-09-28 10:00 | NUR ---
NOTE PT WATCHING TELEVISION, DENIES ANY NEEDS AT THIS TIME. CALL LIGHT WITHIN REACH. COLOSTOMY BAG WAS CHECKED AND MID ABDOMEN DRESSING CDI AT THIS TIME. CALL LIGHT WITHIN REACH.
[2016-09-28 10:31] LABS: CALCIUM 9.8 mg/dL (8.4-11.0); CREATININE 1.62 mg/dL (0.55-1.30); POTASSIUM 4.4 mmol/L (3.5-5.1)
--- NOTE | 2016-09-28 12:00 | NUR ---
NOTE PT WORKED WITH PHYSICAL THERAPY AND FWW. PT TOLERATED AMBULATION WITH FWW WELL AT THIS TIME. PT NOW RESTING IN BED. NO NEEDS NOTED. CALL LIGHT WITHIN REACH.
[2016-09-28] MEDS: SOD FERRIC GLUC COMPLEX/SUC 125 MG in NS 100 ML IV SCH (12:03)
[2016-09-28 12:24] VITALS: BP 99/67; PULSE 99; RESP 16; TEMP 98.3; O2SAT 96
--- NOTE | 2016-09-28 13:45 | NUR ---
PHYSICAL THERAPY CO-SIGN The Physical Therapy Progress Notes documented by Refrigeration Operator have been reviewed. Reviewed/Co-Signed by: Ksenia Hadley PT Documentation Done by: Matt Adams PTA I concur with the documentation of this LEGAL ADMINISTRATIVE ASSISTANT. Plan: continue as per POC if he remains in this hospital and work on increased dynamic balance during gait activities. Addendum: 09/28/16 at 1427 by Ksenia Hadley PT Amended: Links added.
[2016-09-28] MEDS: CEFEPIME 1 GM in D5W 50 ML IV SCH (14:13)
[2016-09-28] MEDS: BALSAM PERU/CASTOR OIL 60 GM OINT...G. TP SCH ×2 (14:55→22:11)
--- NOTE | 2016-09-28 14:59 | NUR ---
Discharge Planning Received order for DC planning back to SNF. Inquiry faxed over to [facility]. Called and left message for MISTI Camacho @ [employer], ref#[id number], requesting auth for SNF and ambulance.
--- NOTE | 2016-09-28 15:00 | NUR ---
NOTE PT'S MID ABDOMEN DRESSING WAS CLEANED AND CHANGED AT THIS TIME. INCISION INTACT, NO DRAINAGE,BLEEDING OR OPEN AREAS NOTED AT THIS TIME. PT WENT BACK TO SLEEP AFTER DRESSING CHANGED. PT TOLERATED WELL. CALL LIGHT WITHIN REACH.
--- NOTE | 2016-09-28 16:05 | NUR ---
Discharge Planning: SHANNAN spoke with Loida at [facility] ([phone]) who states that she has contacted [facility] to open at case for SNF placement. SHANNAN let Loida know that the plan is for DC on 09/29/16.
[2016-09-28 16:58] VITALS: BP 115/72; PULSE 91; RESP 15; TEMP 98.1; O2SAT 99
--- NOTE | 2016-09-28 18:00 | NUR ---
NOTE PT SITTING UP IN BED EATING HIS DINNER. PT DENIES ANY SOB/RESP DISTRESS OR PAIN/DISCOMFORT NOTED AT THIS TIME. IV IN RIGHT HAND INTACT AND PATENT AT THIS TIME. PT DENIES ANY NEEDS AT THIS TIME. CALL LIGHT WITHIN REACH. LEFT LOWER QUADRANT COLOSTOMY BAG INTACT AND MID ABDOMEN INCISION DRESSING CDI AT THIS TIME. CALL LIGHT WITHIN REACH.
--- NOTE | 2016-09-28 19:40 | NUR ---
INITIAL NOTE Patient resting on the bed and watching TV. Respiration even and unlabored. No acute distress. Denied of pain at this time. AO x 4. Skin warm and dry to touch. SL intact to RFA, no redness, no swelling, patent. Mid abdomen incision intact with clean dressing. Colostomy bag intact to LLQ with brown color stool. F/C intact, drain gravity with yellow urine. Discussed [facility] safety issue, use call light when need help, and plan of care. Safety measure maintained. Bed in low position, side rails up. Call light within reached. Refused bed alarm. Will continue to monitor.
[2016-09-28 20:05] VITALS: BP 120/85; PULSE 98; RESP 18; TEMP 98.1; O2SAT 98
--- NOTE | 2016-09-28 21:20 | NUR ---
ROUND Patient resting on the bed comfortable. No acute distress. Safety measure maintained. Call light within reached. Continue to monitor.
--- NOTE | 2016-09-28 23:05 | NUR ---
ROUND Patient resting on the bed with eyes closed. No acute distress. 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 Safety measure maintained. Bed in low position, side rails up. Call light within reached. Continue to monitor.
[2016-09-29] VITALS (8 sets, daily range): BP systolic 94–110; BP diastolic 60–67; PULSE 82–94; RESP 16–21; TEMP 97.4–98.8; O2SAT 95–99
[2016-09-29] MEDS: ONDANSETRON HCL 4 MG/2 ML VIAL IVP PRN
--- NOTE | 2016-09-29 00:01 | NUR ---
ZOFRAN GIVEN Patient vomiting x1, with the food. No acute distress. Zofran 4mg IVP given as ordered. Safety measure maintained. Call light within reached. Will continue to monitor.
[2016-09-29] MEDS: IPRATROPIUM/ALBUTEROL SULFATE 3 ML AMPUL.NEB INH SCH ×2 (00:28→08:16)
--- NOTE | 2016-09-29 00:56 | NUR ---
ROUND Patient resting on the bed with semi-Flower position and watching TV. No acute distress. Respiration even and unlabored. Denied of pain and nausea at this time. Safety measure maintained. Bed in low position, side rails up. Call light within reached. Continue to monitor.
--- NOTE | 2016-09-29 02:14 | NUR ---
ROUND Patient sleeping comfortable. Respiration even and unlabored. No acute distress. Safety measure maintained. Call light within reached. Bed in low position, side rails up. Continue to monitor.
--- NOTE | 2016-09-29 05:29 | NUR ---
ROUND Patient resting on the bed with eyes closed. Respiration even and unlabored. No acute distress. F/C intact, drain gravity with yellow urine. Safety measure maintained. Call light within reached. Bed in low position, side rails up. Continue to monitor.
[2016-09-29] MEDS: METOCLOPRAMIDE HCL 10 MG TABLET PO SCH ×2 (05:57→14:28)
--- NOTE | 2016-09-29 06:33 | NUR ---
CLOSING NOTE Patient resting on the bed with eyes closed. Respiration even and unlabored. No acute distress. AO x 4. Skin warm and dry to touch. SL intact to RFA, no redness, no swelling. Mid abdomen incision intact with clean dressing. Colostomy bag intact to LLQ with brown color stool. F/C intact, drain gravity with yellow urine. 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 All needs met. Hourly rounding during shift. No episode of vomiting after Zofran given. Safety measure maintained. Bed in low position, side rails up. Call light within reached. Will endorse to morning shift nurse.
--- NOTE | 2016-09-29 07:30 | NUR ---
INITIAL NOTE RECEIVED PATIENT FROM SENIOR COST ANALYST NURSE, PATIENT IS CURRENTLY RESTING IN BED, PATIENT IS ALERT AND ORIENTED X 4, ASSESSMENT COMPLETE, PATIENT HAS IV IN RIGHT FOREARM SALINE LOCK, FLUSHES WELL, PATIENT HAS COLOSTOMY BAG, INTACT, TO LEFT LOWER ABDOMEN, DRESSING TO MIDDLE OF ABDOMEN IS DRY AND INTACT, WILL DO WOUND CARE TODAY, PATIENT HAS BANUELOS CATHETER DRAINING YELLOW URINE, INSTRUCTED PATIENT TO USE CALL BRITO IF ASSISTANCE IS NEEDED, PATIENT VERBALIZED UNDERSTANDING, CALL BRITO LEFT NEXT TO PATIENT'S HAND, BED IN LOWEST POSITION, BED ALARM ON, FALL PRECAUTIONS IN PLACE, WILL CONTINUE TO MONITOR.
[2016-09-29] MEDS: AMIODARONE HCL 200 MG TABLET PO SCH (09:00)
--- NOTE | 2016-09-29 09:00 | NUR ---
WOUND CARE 1) Coccygeal Area: Unstageable pressure ulcer WOUND CARE DONE BY CHARGE NURSE AND AN NURSE 2) Mid Central Abdomen: Acute on chronic Surgical wound, present on admission. Cleansed wound with normal saline. Placed moisture barrier cream onto charly-wound. Put Venelex ointment onto wound bed. Covered with foam dressing. 3) Left Abdominal Area: Colostomy, Cleansed area with mild soap and water. Pat dry. Put SurePrep on charly-stoma and surrounding tissue. Applied Ha's ring around stoma. Cut and shape colostomy pouch and place left lateral of wound.
--- NOTE | 2016-09-29 09:04 | NUR ---
DISCHARGE PLANNING Called [facility] left voice message for Loida in admitting requesting return call back. will follow up. Addendum: 09/29/16 at 1036 by Mariluz MCCORMACK spoke with Lennox in admitting at [facility], pending insurance auth. Bed assignment will be given upon insurance auth. Will follow up. Contracted ambulance [facility]. Placed transportation packet in nurses station. Addendum: 09/29/16 at 1042 by Mariluz MCCORMACK Patient assigned to room 42C at [facility] RN to report , bed available anytime. Pending DC order. DARYL Tabares made aware.
[2016-09-29] MEDS: CHOLECALCIFEROL (VITAMIN D3) 2,000 UNIT TABLET PO SCH (09:49)
[2016-09-29] MEDS: PANTOPRAZOLE SODIUM 40 MG TAB PO SCH (09:50)
[2016-09-29] MEDS: DOCUSATE SODIUM 250 MG CAPSULE PO SCH (09:50)
[2016-09-29] MEDS: NEPHROVITE, (FOLIC ACID/VITAMIN B COMP W-C 1 TAB) PO SCH (09:52)
[2016-09-29] MEDS: MULTIVITS,CA,MINERALS/IRON/FA 1 TABLET PO SCH (09:52)
[2016-09-29] MEDS: levETIRAcetam 500 MG TABLET PO SCH (09:52)
[2016-09-29] MEDS: ASCORBIC ACID 500 MG TABLET PO SCH (09:52)
[2016-09-29] MEDS: BALSAM PERU/CASTOR OIL 60 GM OINT...G. TP SCH (09:53)
--- NOTE | 2016-09-29 09:55 | NUR ---
MEDICATIONS PATIENT RECEIVED MORNING MEDICATIONS, EDUCATED PATIENT ON POTENTIAL SIDE EFFECTS, PATIENT VERBALIZED UNDERSTANDING, PATIENT DID NO RECEIVED AMIODARONE THIS MORNING DUE TO LOW BP WILL REASSESS, NO OTHER NEEDS AT THIS TIME, WILL CONTINUE TO MONITOR.
[2016-09-29] MEDS: SOD FERRIC GLUC COMPLEX/SUC 125 MG in NS 100 ML IV SCH (11:10)
--- NOTE | 2016-09-29 11:12 | NUR ---
IV MEDS NOT SCANNING PATIENT IV MEDICATION WAS NOT SCANNING, NOTIFIED PHARMACY, CHIARA CAME TO ASSIST AND COULDN'T FIGURE IT OUT, HE STATED TO MANUALLY ENTER MED, PATIENT IS RESTING IN BED OF NOW, NO OTHER NEEDS, WILL CONTINUE TO MONITOR.
--- NOTE | 2016-09-29 12:45 | NUR ---
PHYSICAL THERAPY CO-SIGN The Physical Therapy Progress Notes documented by Dipping Machine Operator have been reviewed. Reviewed/Co-Signed by: Ksenia Hadley, PT Documentation Done by: Francisco Zhong PTA I concur with the documentation of this KILNMAN. Plan: continue PT as per plan of care if he remains in this hospital. Addendum: 09/29/16 at 1246 by Ksenia Hadley PT Amended: Links added.
--- NOTE | 2016-09-29 13:30 | NUR ---
RN ROUNDS PATIENT IS UP WATCHING TV, NO SIGNS OF DISTRESS NOTED, NO COMPLAINTS OF PAIN OR DISTRESS, CALL BRITO LEFT BY PATIENT'S HAND, FALL PRECAUTIONS IN PLACE.
[2016-09-29] MEDS: CEFEPIME 1 GM in D5W 50 ML IV SCH (14:28)
--- NOTE | 2016-09-29 15:01 | NUR ---
RN ROUNDS PATIENT IS CURRENTLY RESTING IN BED, NO SIGNS OF DISTRESS NOTED, PATIENT DOES NOT COMPLAIN OF ANY PAIN OR DISCOMFORT, WILL CONTINUE TO MONITOR.
--- NOTE | 2016-09-29 15:52 | NUR ---
RN ROUNDS COLOSTOMY BAG LEAKING, BAG REPLACED, CURRENTLY INTACT, WILL CONTINUE TO MONITOR BAG, PATIENT STATES HE HAS NO PAIN OR DISCOMFORT AT THIS TIME, WILL CONTINUE TO MONITOR.
--- NOTE | 2016-09-29 16:59 | NUR ---
DISCHARGE PLANNING DC order back to SNF. Called [facility] ambulance [phone] spoke with Elisa fontana S transport pickle pumper 8:30pm back to [facility] room 42C RN to report [phone]. RN made aware.
--- NOTE | 2016-09-29 18:33 | NUR ---
CLOSING NOTE PATIENT IS CURRENTLY RESTING IN BED, NO SIGNS OF DISTRESS NOTED, PATIENT HAS NO COMPLAINTS OF PAIN OR DISCOMFORT, WILL ENDORSE TO PAINT GRINDER, PATIENT IS READY FOR DISCHARGE, WILL CALL AND GIVE REPORT TO FACILITY, NO OTHER NEEDS AT THIS TIME, ALL NEEDS MET. CALL BRITO NEXT TO PATIENT'S HAND, BED IN LOWEST POSITION, SIDE RAILS UP, FALL PRECAUTIONS IN PLACE.
--- NOTE | 2016-09-29 21:15 | NUR ---
NOTES; RECEIVED PT PREP AND READY FOR DISCHARGE. PER OUT GOING NURSE, REPORT ALREADY CALLED AND GIVEN TO [facility] STAFF NURSE. PER REPORT PT WILL BE TRANSFERRED WITH IV AND BANUELOS CATHETER. PT IN BED WATCHING TV. A/A/O X3, NO APPARENT DISTRESS NOTED. VITAL SIGNS STABLE, AFEBRILE.COLOSTOMY TO THE LEFT ABD INTACT, NO STOOL NOTED IN COLOSTOMY BAG. MID ABDOMINAL WOUND AND SACRAL WOUND WITH DRESSING CLEAN,DRY, AND INTACT. PICTURES ALREADY TAKEN BY DAY NURSE FOR DISCHARGE. BANUELOS CATHETER DRAINING TO GRAVITY YELLOW URINE OUT PUT. PT DENIES ANY PAIN AT THIS TIME. TRANSFER CONSENT SIGNED BY PT. REPORT GIVEN AND TRANSFER PACKET HANDED TO [facility]ANCE TECH .
== END 2016-09-29 21:10 | DRG 871 ==
LOC: SED 21:14 → SMU 09-18 00:29
PROVIDERS: ADMIT Internal Medicine; ATTEND Internal Medicine Hospice and Palliative Medicine
PROC: BT141ZZ Fluoroscopy of Kidneys, Ureters and Bladder using Low Osmolar Contrast (ICD-10-PCS; 2016-09-23)
PROC: 0T778DZ Dilation of Left Ureter with Intraluminal Device, Via Natural or Artificial Opening Endoscopic (ICD-10-PCS; principal; 2016-09-23 11:00)
DX: A41.52 Sepsis due to Pseudomonas (principal); J18.1 Lobar pneumonia, unspecified organism; E43 Unspecified severe protein-calorie malnutrition; E87.1 Hypo-osmolality and hyponatremia; J90 Pleural effusion, not elsewhere classified; N17.9 Acute kidney failure, unspecified; N12 Tubulo-interstitial nephritis, not specified as acute or chronic; N13.30 Unspecified hydronephrosis; T81.30XA Disruption of wound, unspecified, initial encounter; L89.159 Pressure ulcer of sacral region, unspecified stage; N18.9 Chronic kidney disease, unspecified; N40.0 Benign prostatic hyperplasia without lower urinary tract symptoms; E11.22 Type 2 diabetes mellitus with diabetic chronic kidney disease; I12.9 Hypertensive chronic kidney disease with stage 1 through stage 4 chronic kidney disease, or unspecified chronic kidney disease; I25.10 Atherosclerotic heart disease of native coronary artery without angina pectoris; N13.9 Obstructive and reflux uropathy, unspecified; E11.40 Type 2 diabetes mellitus with diabetic neuropathy, unspecified; D64.9 Anemia, unspecified; K80.20 Calculus of gallbladder without cholecystitis without obstruction; R16.0 Hepatomegaly, not elsewhere classified; I49.9 Cardiac arrhythmia, unspecified; M21.5 Acquired clawhand, clubhand, clawfoot and clubfoot; G40.909 Epilepsy, unspecified, not intractable, without status epilepticus; Y83.8 Other surgical procedures as the cause of abnormal reaction of the patient, or of later complication, without mention of misadventure at the time of the procedure; Y93.89 Activity, other specified; Y92.89 Other specified places as the place of occurrence of the external cause; Z85.038 Personal history of other malignant neoplasm of large intestine; Z93.3 Colostomy status; Z88.0 Allergy status to penicillin; Z90.49 Acquired absence of other specified parts of digestive tract; Z92.21 Personal history of antineoplastic chemotherapy; Z85.47 Personal history of malignant neoplasm of testis; Z68.24 Body mass index [BMI] 24.0-24.9, adult; Z79.899 Other long term (current) drug therapy; Y99.8 Other external cause status; Z85.048 Personal history of other malignant neoplasm of rectum, rectosigmoid junction, and anus
CPT/HCPCS: 36415; 71010; 76000; 80048; 80053; 81000-TC; 82607; 82746; 82962; 83036; 83540-TC; 83550-TC; 83605; 83735-TC; 83880; 84100-TC; 84443-TC; 84484; 85025; 85610-TC; 85730-TC; 87040-TC; 87081; 87086; 87186-TC; 87230-TC; 93005; 94010; 94640; 94760; 96365; 97110-GP; 97116-GP; 97530-GP; 99285; A4409; A5061; A6209; C1769; C2625; J0692; J0696; J0885; J1650; J1815; J1885; J1956; J2185; J2250; J2405; J2704; J2916; J3010; J7030; J7040; J7050; J7060; J7120; J8597; Q9967